=== PATIENT | male | born 1960 | race Caucasian/White ===

== ENCOUNTER → 2020-03-06 15:21 | Outpatient (CLI) | payer OTHER, SELFPAY ==
[2020-03-06 17:07] LABS: Prostate Specific Antigen 2.56 ng/mL (0.10-4.00)
== END ==
PROVIDERS: Family Provider Family Medicine; PCP Specialist; Referring Provider Specialist; Visit Provider Specialist
DX: R97.20 Elevated prostate specific antigen [PSA] (principal); N40.1 Benign prostatic hyperplasia with lower urinary tract symptoms; N13.8 Other obstructive and reflux uropathy
CPT/HCPCS: 36415; 51798; 81002; 84153; 99214

== ENCOUNTER 2020-05-28 18:21 | Emergency (ER) | payer OTHER, SELFPAY ==
--- NOTE | 2020-05-28 18:27 | DI.US.S_ITS ---
PROCEDURE: US PERIPH VENOUS LOW EXTREM LT INDICATIONS: EDEMA TECHNIQUE: Real-time imaging, as well as color and pulse Doppler interrogation, were performed of the lower extremity deep veins from the inguinal ligament to the popliteal fossa. COMPARISON: None. FINDINGS: The common femoral, femoral and popliteal veins are normally compressible, and free of intraluminal thrombus. Color and pulse Doppler demonstrate normal phasic intraluminal flow. There is normal augmentation response to distal compression maneuver. 69 mm popliteal fossa fluid collection IMPRESSION: No evidence of left lower extremity DVT. Castillo's cyst. Dictated by: Cuca Fallon M.D. on 05/28/2020 at 18:57 Approved by: Cuca Fallon M.D. on 05/28/2020 at 18:58
[2020-05-28 18:28] VITALS: BP 115/66; PULSE 75; RESP 18; TEMP 36.5; O2SAT 99
[2020-05-28] MEDS: KETOROLAC 60 MG/2 ML VIAL 30 MG IM (19:50)
--- NOTE | 2020-05-28 20:51 | ED.LOWEXIN ---
HPI - Extremity Injury (Lower) <GEETA Higgins-BC - Last Filed: 05/28/20 20:55> General Chief Complaint: Extremity Injury, Lower Stated Complaint: thinks DVT left leg Time Seen by Provider: 05/28/20 18:55 Source: patient Mode of arrival: Ambulatory Limitations: no limitations History of Present Illness HPI Narrative: The patient is a 59-year-old male nonsmoker with history of hernia surgery over a month ago who presents with a chief complaint of a swollen left lower leg is been ongoing for the past several weeks, worse over the past few days. He was seen by his primary care provider, Dr Noland who referred him to the emergency department for a DVT workup. He has no falls or trauma, no knee pain, but several weeks ago felt swelling behind his knee. He denies any recent immobility, is very active playing tennis. He does have history of a hernia surgery several weeks to months ago. Denies any personal history of blood clots. Denies any chest pain or shortness of breath, denies any fevers nausea vomiting or diarrhea. Related Data Previous Rx's Medication Instructions Recorded tamsulosin 0.4 mg capsule 0.4 mg PO BEDTIME #90 cap 03/18/20 ketorolac 10 mg PO TID PRN #14 tab 05/28/20 Allergies Allergy/AdvReac Type Severity Reaction Status Date / Time No Known Drug Allergies Allergy Unverified 03/06/20 14:08 Review of Systems <Mariann GEETA Nascimento-BC - Last Filed: 05/28/20 20:55> Review of Systems Narrative: GENERAL: This is a well-nourished, well-developed patient, in mild distress. HEAD: Atraumatic. Normocephalic. No temporal or scalp tenderness. EYES: Pupils equal round and reactive. Extraocular motions intact. No scleral icterus. No injection or drainage. ENT: Nose without bleeding, purulent drainage or septal hematoma. Throat without erythema, tonsillar hypertrophy or exudate. Uvula midline. Airway patent. NECK: Trachea midline. No JVD or lymphadenopathy. Supple, nontender, no meningeal signs. CARDIOVASCULAR: Regular rate and rhythm without murmurs, gallops, or rubs. RESPIRATORY: Clear to auscultation. Breath sounds equal bilaterally. No wheezes, rales, or rhonchi. GASTROINTESTINAL: Abdomen soft, non-tender, nondistended. No hepato-splenomegaly, or palpable masses. No guarding. EXTREMITIES: See HPI BACK: Nontender without deformity or crepitance. No flank tenderness. NEURO: AOx3. SKIN: No rash or erythema. Patient History <FIOR Higgins - Last Filed: 05/28/20 20:55> Medical History (Updated 05/28/20 @ 20:02 by FIOR Higgins) Elevated PSA (Acute) Increased prostate specific antigen (PSA) velocity (Acute) Surgical History H/O gastric bypass (Acute) H/O hernia repair (Acute) History of removal of calculus of renal pelvis through percutaneous nephrostomy (Acute) Previous back surgery (Acute) Social History Smoking Status: Never smoker Smoking Status: Never smoker Exam <FIOR Higgins - Last Filed: 05/28/20 20:55> Narrative Exam Narrative: GENERAL: This is a well-nourished, well-developed patient, in no acute distress HEAD: Atraumatic. Normocephalic. No temporal or scalp tenderness. EYES: Pupils equal round and reactive. Extraocular motions intact. No scleral icterus. No injection or drainage. ENT: Nose without bleeding, purulent drainage or septal hematoma. Throat without erythema, tonsillar hypertrophy or exudate. Uvula midline. Airway patent. NECK: Trachea midline. No JVD or lymphadenopathy. Supple, nontender, no meningeal signs. CARDIOVASCULAR: Regular rate and rhythm RESPIRATORY: Clear to auscultation. Breath sounds equal bilaterally. No wheezes, rales, or rhonchi. No cough. No increased respiratory effort. No accessory muscle use. EXTREMITIES: Positive pedal pulses left lower leg. Slight swelling noted left leg compared to right leg. No visual abnormalities. Varicosities noted on right leg. Some pain to palpation left gastrocs. Negative Homans test. BACK: Nontender without deformity or crepitance. No flank tenderness. NEURO: AOx3. SKIN: No rash or erythema on visible skin. No erythema noted left lower leg. Initial Vital Signs Initial Vital Signs: Vital Signs Temperature 97.7 F 05/28/20 18:28 Pulse Rate 75 05/28/20 18:28 Respiratory Rate 18 05/28/20 18:28 Blood Pressure 115/66 05/28/20 18:28 Pulse Oximetry 99 05/28/20 18:28 <Tavon Anaya DO - Last Filed: 05/28/20 21:40> Initial Vital Signs Initial Vital Signs: Vital Signs Temperature 97.7 F 05/28/20 18:28 Pulse Rate 75 05/28/20 18:28 Respiratory Rate 18 05/28/20 18:28 Blood Pressure 115/66 05/28/20 18:28 Pulse Oximetry 99 05/28/20 18:28 Scores <FIOR Higgins - Last Filed: 05/28/20 20:55> GCS [place] coma scale eye opening: Spontaneous [place] coma scale verbal response: Orientated [place] coma scale motor response: Obey commands [place] coma scale total score: 15 Course <FIOR Higgins - Last Filed: 05/28/20 20:55> Orders Ordered: ED Orders 05/28/20 18:27 US periph venous low extrem lt Stat Discontinued Medications Ketorolac Tromethamine (Toradol) 30 mg IM NOW ONE Stop: 05/28/20 19:35 Last Admin: 05/28/20 19:50 Dose: 30 mg Documented by: MARCO Vital Signs Vital signs: Vital Signs - 8 hr 05/28/20 18:28 Temperature 97.7 F Pulse Rate 75 Respiratory Rate 18 Blood Pressure 115/66 Pulse Oximetry 99 <Tavon Anaya DO - Last Filed: 05/28/20 21:40> Orders Ordered: ED Orders 05/28/20 18:27 US periph venous low extrem lt Stat Discontinued Medications Ketorolac Tromethamine (Toradol) 30 mg IM NOW ONE Stop: 05/28/20 19:35 Last Admin: 05/28/20 19:50 Dose: 30 mg Documented by: MARCO Vital Signs Vital signs: Vital Signs - 8 hr 05/28/20 18:28 Temperature 97.7 F Pulse Rate 75 Respiratory Rate 18 Blood Pressure 115/66 Pulse Oximetry 99 MDM - Extremity Injury (Lower) <FIOR Higgins - Last Filed: 05/28/20 20:55> Imaging Data US - DVT: Radiologist's Impression: [address] [place] [id number] Ultrasound Report Signed Patient: Dejuan Morris [facility]#: [id number] : 9Acct:[id number] Age/Sex: 59 / MDate of Service: 05/28/20 Loc: ED Accession Number: [id number] Procedure: US periph venous low extrem lt Ordering Provider: Mariann Nascimento PROCEDURE: US PERIPH VENOUS LOW EXTREM LT INDICATIONS: EDEMA TECHNIQUE: Real-time imaging, as well as color and pulse Doppler interrogation, were performed of the lower extremity deep veins from the inguinal ligament to the popliteal fossa. COMPARISON: None. FINDINGS: The common femoral, femoral and popliteal veins are normally compressible, and free of intraluminal thrombus. Color and pulse Doppler demonstrate normal phasic intraluminal flow. There is normal augmentation response to distal compression maneuver. 69 mm popliteal fossa fluid collection IMPRESSION: No evidence of left lower extremity DVT. Castillo's cyst. Dictated by: Cuca Fallon M.D. on 05/28/2020 at 18:57 Approved by: Cuca Fallon M.D. on 05/28/2020 at 18:58 [facility] Narrative Medical decision making narrative: The patient is a 59-year-old male who presents for chief complaint of a possible DVT of his left lower leg. His ultrasound came back negative for DVT, positive for Castillo cyst, which could be causing his swelling and pain. He denies any falls or trauma, so I do not believe an x-ray would benefit him at this point time. He is neurovascularly intact throughout stay in the ER. We did do a trial of Toradol, he wanted to leave before we can ensure that it would help his pain, so I did send in a prescription and discussed at length taking it with food. Encourage primary care provider follow-up the next few days as well as coming back to the ER for acute concerns. Patient has no questions or concerns upon discharge and states understanding of return precautions as well as follow-up care. Discharge Plan Departure Patient Disposition: Home Clinical Impression: Castillo's cyst of knee Qualifiers: Laterality: left Qualified Code(s): M71.22 - Synovial cyst of popliteal space [Castillo], left knee Discharge Date/Time: 05/28/20 20:18 Instructions: DI for Castillo Cyst Activity Restrictions/Additional Instructions: As thank you for trusting us with your care today. As discussed, your ultrasound came back negative for a DVT. It did come back with a Castillo's cyst. I sent a prescription of ketorolac or Toradol to [facility] in [facility] I have given you a prescription of Toradol. This is an NSAID. Do not combine it with other NSAIDs such as Aleve or ibuprofen. I suggest taking it with some food, as it can irritate your stomach. Please come back to the emergency department for any acute concerns such as chest pain, shortness of breath etcetera Please follow-up with primary care provider in the next few days Prescriptions: New ketorolac 10 mg tablet 10 mg PO TID PRN (Reason: pain) Qty: 14 RF: 0 No Action tamsulosin 0.4 mg capsule 0.4 mg PO BEDTIME Qty: 90 RF: 3 Referrals: Tavon Noland [Non-Staff] - <Tavon Anaya DO - Last Filed: 05/28/20 21:40> [facility]: Dr Anaya Co-Sign Statement: I was available for consultation during this patient's emergency department visit. This chart is signed by myself for administrative purposes only. I did not have direct contact with this patient during this visit. They were seen independently by the APC.
== END 2020-05-28 20:18 | disposition home or self-care (01) ==
PROVIDERS: Emergency Provider Nurse Practitioner Family; Family Provider Family Medicine; PCP Specialist
DX: M71.22 Synovial cyst of popliteal space [Baker], left knee (principal)
CPT/HCPCS: 93971; 96372; 99283; J1885

== ENCOUNTER 2020-06-09 10:34 | Emergency (ER) | payer OTHER, SELFPAY ==
[2020-06-09 10:44] VITALS: BP 175/94; PULSE 74; RESP 16; TEMP 36.7; O2SAT 100; BMI 34.2
--- NOTE | 2020-06-09 11:08 | ED_ITS ---
HPI - Extremity Problem <MAG Singletary - Last Filed: 06/09/20 18:17> General Chief complaint: Extremity Problem,Nontraumatic Stated complaint: swollen left leg Time Seen by Provider: 06/09/20 10:57 Source: patient Mode of arrival: Ambulatory Limitations: no limitations History of Present Illness HPI Narrative: 59yo male presents to the ED for re-evaluation for left leg swelling. Patient was seen in the emergency department on 05/28/2020 for rule out DVT, he was sent to the ED by his primary care provider at that time. Ultrasound was negative for DVT but positive for Castillo cyst. Patient states he continues to have pain located behind his left knee, patient reports the swelling has increased. He has an appointment in 2 days with an orthopedic. However, he was concerned that the swelling has been worse and his degree of left knee flexion has decreased. Patient reports a dull aching pain located behind his knee that radiates down to his left calf, worse with weight-bearing and movement. Patient states he talked to somebody at the [facility] and was told to be re-evaluated in the ED. Patient has a history of hernia surgery a few months ago, denies any history of clotting disorders or recent DVTs. Patient states he has been taking 400 mg of ibuprofen every 6 hours. He has an orthopedic appointment scheduled in 2 days. Related Data Previous Rx's Medication Instructions Recorded tamsulosin 0.4 mg capsule 0.4 mg PO BEDTIME #90 cap 03/18/20 ketorolac 10 mg PO TID PRN #14 tab 05/28/20 Allergies Allergy/AdvReac Type Severity Reaction Status Date / Time No Known Drug Allergies Allergy Unverified 03/06/20 14:08 Review of Systems <MAG Singletary - Last Filed: 06/09/20 18:17> Review of Systems Narrative: REVIEW OF SYSTEMS: GENERAL: Denies fever or chills. HENT: No head trauma. CARDIOVASCULAR: No chest pain. RESPIRATORY: No shortness of breath or cough. GASTROINTESTINAL: No nausea, vomiting, diarrhea, or constipation. GENITOURINARY: No flank pain. MUSCULOSKELETAL: Complains of L leg pain, see HPI. INTEGUMENTARY: No rash, lesions, or pruritus. NEURO: No numbness, tingling. PSYCH: No behavior or mood changes. Patient History <MAG Singletary - Last Filed: 06/09/20 18:17> Medical History Elevated PSA (Acute) Increased prostate specific antigen (PSA) velocity (Acute) Surgical History H/O gastric bypass (Acute) H/O hernia repair (Acute) History of removal of calculus of renal pelvis through percutaneous nephrostomy (Acute) Previous back surgery (Acute) Social History Smoking Status: Never smoker Smoking Status: Never smoker alcohol intake frequency: holidays/special occasions only Substance Use Type: does not use Exam <MAG Singletary - Last Filed: 06/09/20 18:17> Initial Vital Signs Initial Vital Signs: Vital Signs Temperature 98.1 F 06/09/20 10:44 Pulse Rate 74 06/09/20 10:44 Respiratory Rate 16 06/09/20 10:44 Blood Pressure 175/94 H 06/09/20 10:44 Pulse Oximetry 100 06/09/20 10:44 PHYSICAL EXAMINATION: GENERAL: Well groomed, alert, and cooperative. Answers questions promptly and appropriately. Vital signs noted. HENT: Normocephalic, atraumatic. EYES: Symmetrical, sclera white, no periorbital swelling. CARDIOVASCULAR: S1 and S2 sounds normal. Regular rate and rhythm, no murmurs, clicks, or bruits. No pedal edema. RESPIRATORY: Normal respiratory rate, trachea midline, airway patent. No stridor, nasal flaring or accessory muscle use. Lungs are clear in all wan. MUSCULOSKELETAL: Swelling noted to left knee, no erythema or increased temp. Tenderness to popliteal region, flexion to approximately 30?, full extension. Slight swelling noted in left ankle, slight tenderness to palpation of left calf. Pedal pulses 2+ and equal bilaterally. Normal gait and coordination. Equal tone and mass bilaterally. EXTREMITIES: CMS intact. SKIN: Warm, dry, soft, appropriate color for ethnicity. No lesions, rashes, or wounds. NEURO: Alert and Oriented X 3. No sensory deficits. PSYCH: Appropriate affect and mood. <Adarsh Fernandez MD - Last Filed: 06/10/20 18:03> Initial Vital Signs Initial Vital Signs: Vital Signs Temperature 98.1 F 06/09/20 10:44 Pulse Rate 74 06/09/20 10:44 Respiratory Rate 16 06/09/20 10:44 Blood Pressure 175/94 H 06/09/20 10:44 Pulse Oximetry 100 06/09/20 10:44 Course <MAG Singletary - Last Filed: 06/09/20 18:17> Course Course Narrative: 1116: Patient initially requested draining of Castillo cyst or MRI, explained to patient that he would need to seen orthopedic in order for these tested occurred. Discussed risks of draining cyst at this time due to lack of notable collection of fluid and increasing fraction wrist. Discussed unable to get MRI from ED at this time. At time of discharge, discussed increased size of Castillo cyst, negative DVT. Encouraged to follow-up with orthopedic in the next few days. Orders Ordered: ED Orders 06/09/20 11:06 US periph venous low extrem lt Stat Consultations Consultation #1: Staffed with Dr. Fernandez, who agreed no emergent drainage of cyst needed Vital Signs Vital signs: Vital Signs - 8 hr 06/09/20 10:44 06/09/20 12:55 Temperature 98.1 F Pulse Rate 74 62 Respiratory Rate 16 16 Blood Pressure 175/94 H 136/76 Pulse Oximetry 100 100 <Adarsh Fernandez MD - Last Filed: 06/10/20 18:03> Orders Ordered: ED Orders 06/09/20 11:06 US periph venous low extrem lt Stat Vital Signs Vital signs: Vital Signs - 8 hr 06/09/20 10:44 06/09/20 12:55 Temperature 98.1 F Pulse Rate 74 62 Respiratory Rate 16 16 Blood Pressure 175/94 H 136/76 Pulse Oximetry 100 100 MDM - Extremity (Nontraumatic) <MAG Singletary - Last Filed: 06/09/20 18:17> Medical Records Attestation: I reviewed the patient's medical records. Lab Data Attestation: I reviewed the patient's lab results. Imaging Data US - DVT: Radiologist's Impression: [address] [id number] Ultrasound Report Signed Patient: Dejuan Morris [facility]#: [id number] : 9Acct:[id number] Age/Sex: 59 / MDate of Service: 06/09/20 Loc: ED Accession Number: [id number] Procedure: US periph venous low extrem lt Ordering Provider: Leatha Obregon PROCEDURE: US PERIPH VENOUS LOW EXTREM LT INDICATIONS: LEFT LEG SWELLING - RULE OUT DEEP VEIN THROMBOSIS TECHNIQUE: Real-time imaging, as well as color and pulse Doppler interrogation, were performed of the lower extremity deep veins from the inguinal ligament to the popliteal fossa. COMPARISON: [facility], PERIPH VENOUS LOW EXTREM LT, 05/28/2020, 18:44. FINDINGS: The common femoral, femoral and popliteal veins are normally compressible, and free of intraluminal thrombus. Color and pulse Doppler demonstrate normal phasic intraluminal flow. There is normal augmentation response to distal compression maneuver. 10.1 x 4.5 x 1.8 cm complex appearing popliteal cyst is again seen previously measures 6.9 x 2.9 x 1.5 cm in size. IMPRESSION: 1. No evidence of DVT in visualized left lower extremity veins. 2. Interval increase in size of patient's known complex popliteal cyst. Dictated by: Abundio Rodriguez M.D. on 06/09/2020 at 12:23 Approved by: Abundio Rodriguez M.D. on 06/09/2020 at 12:23 MDM Narrative Medical decision making narrative: 59-year-old male with a known popliteal cyst, presents to the for worsening swelling and pain to the back of his left knee. Additional ultrasound ordered to further rule out DVT given some probability of missing DVT on 1st initial ultrasound. Ultrasound negative for DVT, shows enlarging popliteal cyst. No signs of infection, no surrounding erythema or increased temp. I suspect patient's pain is swelling is most likely caused by the popliteal cyst, unable to offer cyst drainage or glucocorticoid injection in the ED today. He was encouraged to follow-up with orthopedic as scheduled in the next 2 days. Return precautions given for new or worsening symptoms. Patient agreed to plan of care verbalized understanding. Discharge Plan Departure Patient Disposition: Home Clinical Impression: Castillo cyst Qualifiers: Laterality: left Qualified Code(s): M71.22 - Synovial cyst of popliteal space [Castillo], left knee Discharge Date/Time: 06/09/20 13:02 Instructions: DI for Castillo Cyst Activity Restrictions/Additional Instructions: Thank you for entrusting me with your care today. As discussed, a Castillo cyst was seen on ultrasound today, it has increased in size. This will need further treatment, please see the orthopedic as scheduled on Tuesday. No DVT seen. Use an Froilan bandage to help decrease swelling, take ibuprofen as needed. Return emergency department for any new or worsening symptoms. Prescriptions: No Action tamsulosin 0.4 mg capsule 0.4 mg PO BEDTIME Qty: 90 RF: 3 ketorolac 10 mg tablet 10 mg PO TID PRN (Reason: pain) Qty: 14 RF: 0 Referrals: Tavon Noland [Primary Care Provider] - <Adarsh Fernandez MD - Last Filed: 06/10/20 18:03> Cosign ED Attending Cosignature Attestation: I was immediately available in the department for consultation. This documentation has been reviewed and I agree with assessment and plan. Supervised by Adarsh Fernandez MD
[2020-06-09 12:55] VITALS: BP 136/76; PULSE 62; RESP 16; O2SAT 100
== END 2020-06-09 13:02 | disposition home or self-care (01) ==
PROVIDERS: Emergency Provider Nurse Practitioner; Family Provider Family Medicine; PCP Family Medicine
DX: M71.22 Synovial cyst of popliteal space [Baker], left knee (principal)
CPT/HCPCS: 93971; 99281; 99283

== ENCOUNTER → 2020-11-24 11:59 | Outpatient (CLI) | payer OTHER, SELFPAY ==
--- NOTE | 2020-11-24 12:00 | DI.RAD.S_ITS ---
PROCEDURE: XR LUMBAR SPINE MIN 4V INDICATIONS: lbp TECHNIQUE: 5 views of the lumbar spine were acquired, including bilateral oblique views. COMPARISON: None. FINDINGS: Bones: 5 nonrib-bearing vertebrae are present. There is normal bony alignment. No vertebral body compression fractures. Mild degenerative endplate changes are noted at L4-5 and L5-S1 levels. No suspicious bony lesions. Soft tissues: Overlying bowel gas pattern is normal. No suspicious soft tissue calcifications. Oblique images: No pars defects. No significant bony foraminal stenosis. IMPRESSION: Mild degenerative disc disease in lower lumbar spine. No compression fracture or spondylolisthesis. No gross pars defect or significant bony foraminal stenosis. Dictated by: Abundio Rodriguez M.D. on 11/24/2020 at 12:25 Approved by: Abundio Rodriguez M.D. on 11/24/2020 at 12:26
== END ==
PROVIDERS: Family Provider Family Medicine; PCP Family Medicine; Referring Provider Physical Medicine & Rehabilitation; Visit Provider Physical Medicine & Rehabilitation
DX: M51.16 Intervertebral disc disorders with radiculopathy, lumbar region (principal)
CPT/HCPCS: 72110; 99214

== ENCOUNTER 2021-01-07 12:32 | Emergency (ER) | payer OTHER, SELFPAY ==
[2021-01-07] VITALS (26 sets, daily range): BP systolic 101–136; BP diastolic 72–91; PULSE 63–89; RESP 7–32; TEMP 36.9; O2SAT 96–100; BMI 25.8
--- NOTE | 2021-01-07 12:35 | ED.ARRPALP ---
HPI - Arrhythmia/Palpitations General Chief Complaint: Arrhythmia/Palpitations Stated Complaint: hx of a-fib/episode 28 hours Time Seen by Provider: 01/07/21 12:34 Source: patient Mode of arrival: Ambulatory Limitations: no limitations History of Present Illness HPI narrative: 60-year-old male nonsmoker with history of hypertension and prior episodes of brief atrial fibrillation presents with a chief complaint of a rapid and irregular heart beat with associated shortness of breath and some dizziness. He denies any chest pain nor fever or chills. He states that his symptoms started yesterday morning and is certainly were not happened the night before. 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 He is not anticoagulated but does take a baby aspirin daily. He denies any recent travel, change in diet or medications. MD complaint: rapid heart beat Onset (ago): hour(s) Duration: constant Severity: moderate Context: occurred during rest Arrhythmia history: atrial fibrillation Associated symptoms: shortness of breath Related Data Home Medications Medication Instructions Recorded Confirmed losartan 25 mg tablet 25 mg PO DAILY 11/24/20 11/24/20 Previous Rx's Medication Instructions Recorded celecoxib 200 mg capsule 200 mg PO DAILY #30 cap 11/24/20 apixaban [Eliquis] 5 mg PO BID 21 Days #42 tab 01/07/21 Allergies Allergy/AdvReac Type Severity Reaction Status Date / Time No Known Drug Allergies Allergy Unverified 11/24/20 14:26 Review of Systems Constitutional Constitutional: Denies chills, Denies fatigue, Denies fever(s), Denies frequent falls, Denies lethargy and Denies weakness Eyes Eyes: Denies change in vision, Denies eye discharge, Denies irritation and Denies loss of vision ENT Ears, Nose, Mouth, and Throat: Denies change in voice, Denies dizziness, Denies neck pain, Denies sore throat and Denies throat swelling Cardiovascular Cardiovascular: Denies chest pain, Reports irregular heart rhythm, Reports lightheadedness, Reports palpitations, Reports dyspnea, Denies dyspnea on exertion and Denies orthopnea Respiratory Respiratory: Denies cough, Reports dyspnea, Denies dyspnea on exertion and Denies wheezing Gastrointestinal Gastrointestinal: Denies abdominal pain, Denies change in bowel habits, Denies diarrhea, Denies nausea and Denies vomiting Musculoskeletal Musculoskeletal: Denies neck pain and Denies numbness Integumentary/Breasts Skin/Breast: Denies pruritus, Denies erythema, Denies rash and Denies wounds Neurologic Neurologic: Denies behavioral changes, Denies confusion, Denies dizziness, Denies frequent falls, Denies loss of vision, Denies numbness and Denies weakness Psychiatric Psychiatric: Denies anxiety, Denies behavioral changes, Denies confusion, Denies depression, Denies homicidal ideation and Denies suicidal ideation Endocrine Endocrine: Denies fatigue, Denies flushing and Reports palpitations Hematologic/Lymphatic Hematologic/Lymphatic: Denies easy bruising Allergic/Immunologic Allergic/Immunologic: Denies urticaria, Denies throat swelling and Denies wheezing Patient History Medical History Elevated PSA Facet arthropathy, lumbar Increased prostate specific antigen (PSA) velocity Lumbar radiculopathy Surgical History H/O gastric bypass H/O hernia repair History of removal of calculus of renal pelvis through percutaneous nephrostomy Previous back surgery Social History Smoking Status: Never smoker Smoking Status: Never smoker alcohol intake frequency: holidays/special occasions only Substance Use Type: does not use Exam Narrative Exam Narrative: GENERAL: [60] year old patient appears stated age. Well-nourished, well-developed patient, in mild distress. HEAD: Atraumatic. Normocephalic. EYES: Pupils equal round and reactive. Extraocular motions intact. No scleral icterus. No injection or drainage. ENT: Nose without bleeding, purulent drainage. Throat without erythema, tonsillar hypertrophy or exudate. Airway patent. NECK: Trachea midline. Non tender CARDIOVASCULAR: Regular rate but irregular rhythm without murmurs, gallops, or rubs. RESPIRATORY: Clear to auscultation. Breath sounds equal bilaterally. No wheezes, rales, or rhonchi. GASTROINTESTINAL: Abdomen soft, non-tender, nondistended. EXTREMITIES: No edema or joint tenderness. BACK: Nontender without deformity or crepitance. No flank tenderness. NEURO: AOx3. SKIN: No rash or erythema of visible areas Initial Vital Signs Initial Vital Signs: Vital Signs Temperature 98.5 F 01/07/21 12:40 Pulse Rate 89 01/07/21 12:40 Respiratory Rate 16 01/07/21 12:40 Blood Pressure 136/91 H 01/07/21 12:40 Pulse Oximetry 99 01/07/21 12:40 Procedures Cardioversion Consent Signed: Yes Indication: Symptomatic atrial fibrillation Stability: Stable Number of attempts (shocks): 1 Joules used: 150 Cardiac rhythm post-cardioversion: Normal sinus Procedural Sedation Consent signed: Yes Time out performed: Yes Indication: cardioversion ASA Class: II Mallampati Airway Classification: Class II Preparation: group program manager applied, pulse oximeter, capnometry used, supplemental O2 applied, suction/airway equipment at bedside and IV secured IV Propofol dose (mg): 80 Intraservice time/total sedation time (min): 10 ED Sedation Level: Moderate (Concious) Patient Tolerated Procedure: Well Complications: none Scores CHADS-VASc Congestive heart failure: no Hypertension: yes Age 75 years or older: no Diabetes mellitus: no Stroke, TIA, or TE: no Vascular disease: no Age 65 to 74 years: no Sex category (female): Male CHADS-VASc Score: 1 Course Orders Ordered: ED Orders 01/07/21 12:35 EKG-12 Lead Stat 01/07/21 12:41 Basic Metabolic Panel Stat Complete Blood Count AUTO DIFF Stat Magnesium Stat TSH w/ Reflex to FT4 Stat Discontinued Medications Apixaban (Apixaban 5 Mg Tablet) 5 mg PO NOW ONE Stop: 01/07/21 15:08 Last Admin: 01/07/21 15:26 Dose: 5 mg Documented by: [email or web address] Propofol (Propofol 200 Mg/20 Ml Vial) 80 mg 1 mg/kg (80 mg) IV NOW ONE Stop: 01/07/21 14:03 Last Admin: 01/07/21 14:10 Dose: 60 mg Documented by: RSSIRIA Consultations Consultation #1: I did discuss this case with on-call Cardiology given the time frame of approximately 30 hours and patient's rate. We do show the opinion that the patient is low risk for clot formation and stroke per chads Vasc, and also takes aspirin. Though his rate is only in the 80s or 90s his resting heart rate is in the 60s and he is actually rather symptomatic from this. Vital Signs Vital signs: Vital Signs - 8 hr 01/07/21 12:40 01/07/21 12:41 01/07/21 12:50 Temperature 98.5 F Pulse Rate 89 87 84 Respiratory Rate 16 19 13 Blood Pressure 136/91 H 118/72 Pulse Oximetry 99 99 98 01/07/21 13:00 01/07/21 13:30 01/07/21 13:31 Temperature Pulse Rate 84 80 81 Respiratory Rate 17 14 16 Blood Pressure 101/74 114/74 Pulse Oximetry 97 96 96 01/07/21 14:00 01/07/21 14:06 01/07/21 14:10 Temperature Pulse Rate 83 80 81 Respiratory Rate 32 H 16 15 Blood Pressure 111/77 111/82 111/86 Pulse Oximetry 97 98 98 01/07/21 14:15 01/07/21 14:20 01/07/21 14:21 Temperature Pulse Rate 83 71 73 Respiratory Rate 15 14 14 Blood Pressure 120/73 111/76 Pulse Oximetry 100 100 100 01/07/21 14:25 01/07/21 14:30 01/07/21 14:35 Temperature Pulse Rate 69 66 69 Respiratory Rate 15 7 L 12 Blood Pressure 107/72 116/79 119/80 Pulse Oximetry 100 100 100 01/07/21 14:40 01/07/21 14:45 01/07/21 14:50 Temperature Pulse Rate 65 63 68 Respiratory Rate 12 13 15 Blood Pressure 115/79 118/72 116/77 Pulse Oximetry 100 100 100 01/07/21 14:55 01/07/21 15:00 01/07/21 15:05 Temperature Pulse Rate 69 68 73 Respiratory Rate 19 17 31 H Blood Pressure 113/73 114/77 116/86 Pulse Oximetry 100 100 100 01/07/21 15:10 01/07/21 15:15 01/07/21 15:20 Temperature Pulse Rate 68 70 68 Respiratory Rate 12 18 16 Blood Pressure 120/79 116/78 114/77 Pulse Oximetry 100 100 100 01/07/21 15:25 01/07/21 15:50 Temperature Pulse Rate 70 Respiratory Rate 17 Blood Pressure 112/81 113/75 Pulse Oximetry 100 MDM - Arrhythmia/Palpitations Lab Data Result diagrams: 01/07/21 12:41 01/07/21 12:41 Labs: Lab Results 01/07/21 01/07/21 01/07/21 Range/Units 12:41 12:41 12:41 WBC 6.5 (4.5-11.0) X10^3/uL RBC 4.61 (4.5-5.9) X10^6/uL Hgb 14.9 (13.5-17.5) g/dL Hct 43.8 (41-53) % MCV 95.1 (80-100) fL MCH 32.3 (26-34) PG MCHC 34.0 (30-36) % RDW 13.5 (11.6-14.8) % Plt Count 244 (150-400) X10^3/uL Neut % (Auto) 61.9 (50-75) % Lymph % (Auto) 22.3 L (25-40) % [place] % (Auto) 9.9 (3-14) % Eos % (Auto) 5.3 H (2-4) % Baso % (Auto) 0.6 (0-2) % Neut # (Auto) 4000 (4051-3273) /uL Lymph # (Auto) 1500 (8665-8787) /uL [place] # (Auto) 600 (0-900) /uL Eos # (Auto) 300 (0-450) /uL Baso # (Auto) 0 (0-100) /uL Sodium 139 (137-145) mmol/L Potassium 4.5 (3.4-5.1) mmol/L Chloride 106 (98-107) mmol/L Carbon Dioxide 26 (22-32) mmol/L BUN 13 (9-20) mg/dL Creatinine 0.81 (0.66-1.25) mg/dL Estimated GFR > 60.0 (>60) mL/min BUN/Creatinine Ratio 16.0 (6-22) Glucose 86 (80-110) mg/dL Calcium 9.4 (8.4-10.2) mg/dL Magnesium 2.3 (1.6-2.3) mg/dL TSH (0.47-4.68) uIU/mL 01/07/21 Range/Units 12:41 WBC (4.5-11.0) X10^3/uL RBC (4.5-5.9) X10^6/uL Hgb (13.5-17.5) g/dL Hct (41-53) % MCV (80-100) fL MCH (26-34) PG MCHC (30-36) % RDW (11.6-14.8) % Plt Count (150-400) X10^3/uL Neut % (Auto) (50-75) % Lymph % (Auto) (25-40) % [place] % (Auto) (3-14) % Eos % (Auto) (2-4) % Baso % (Auto) (0-2) % Neut # (Auto) (7447-8263) /uL Lymph # (Auto) (8560-0335) /uL [place] # (Auto) (0-900) /uL Eos # (Auto) (0-450) /uL Baso # (Auto) (0-100) /uL Sodium (137-145) mmol/L Potassium (3.4-5.1) mmol/L Chloride (98-107) mmol/L Carbon Dioxide (22-32) mmol/L BUN (9-20) mg/dL Creatinine (0.66-1.25) mg/dL Estimated GFR (>60) mL/min BUN/Creatinine Ratio (6-22) Glucose (80-110) mg/dL Calcium (8.4-10.2) mg/dL Magnesium (1.6-2.3) mg/dL TSH 0.96 (0.47-4.68) uIU/mL Point of Care Testing Glucose POC 53 MDM Narrative Medical decision making narrative: I did have an extensive discussion with the patient regarding the risks and benefits of atrial fibrillation, procedural sedation and cardioversion. Patient was very strongly in support of cardioversion after this discussion, he understands risks and benefits and wishes to proceed. Patient tolerated procedure well and felt great afterwards. He has been given return precautions and sent questions answered to his apparent satisfaction Discharge Plan Departure Patient Disposition: Home Clinical Impression: Atrial fibrillation Qualifiers: Atrial fibrillation type: paroxysmal Qualified Code(s): I48.0 - Paroxysmal atrial fibrillation Instructions: DI for Atrial Fibrillation Activity Restrictions/Additional Instructions: *You have been diagnosed with [atrial fibrillation status post procedural sedation and cardioversion] *What to do: *Please continue to take your regular medications as directed. [x ] New medication prescriptions sent to your pharmacy: [[facility] ] [ ] New medication written as a paper prescription [ ] No new medications given *Please follow up with your primary care provider in 2-3 days, call for an appointment. Let them know you were seen in the Emergency Department and that we ask that you be seen in follow up. We will electronically transmit a record of today's note if your PCP is in our system *If you do not have a primary care provider please contact the [facility] Resource line at [phone]. They will ask some questions about your medical history and help get you set up with a doctor in the community. *Return to Emergency Department if you should have any new, worsening or concerning symptoms, such as [fever greater than 101 F, shaking chills, worsening pain, persistent vomiting or other bothersome symptoms] Prescriptions: New Eliquis 5 mg tablet 5 mg PO BID 21 Days Qty: 42 RF: 0 No Action losartan 25 mg tablet 25 mg PO DAILY RF: 0 celecoxib [Celebrex] 200 mg capsule 200 mg PO DAILY Qty: 30 RF: 2 Referrals: Tavon Noland MD [Primary Care Provider] -
[2021-01-07 12:57] LABS: Add Manual Diff / Slide Review NO; Basophils Absolute Auto 0 /uL (0-100); Basophils Percent Auto 0.6 % (0-2); Eosinophils Absolute Auto 300 /uL (0-450); Eosinophils Percent Auto 5.3 % (2-4); Hematocrit 43.8 % (41-53); Hemoglobin 14.9 g/dL (13.5-17.5); Lymphocytes Absolute Auto 1500 /uL (1100-4500); Lymphocytes Percent Auto 22.3 % (25-40); Mean Corpuscular Hemoglobin 32.3 PG (26-34); Mean Corpuscular Volume 95.1 fL (80-100); Monocytes Absolute Auto 600 /uL (0-900); Monocytes Percent Auto 9.9 % (3-14); Neutrophils Absolute Auto 4000 /uL (1500-7000); Neutrophils Percent Auto 61.9 % (50-75); Platelet Count 244 X10^3/uL (150-400); Red Blood Cell Count 4.61 X10^6/uL (4.5-5.9); Red Cell Distribution Width 13.5 % (11.6-14.8); White Blood Cell Count 6.5 X10^3/uL (4.5-11.0)
[2021-01-07 13:13] LABS: Blood Urea Nitrogen 13 mg/dL (9-20); Calcium 9.4 mg/dL (8.4-10.2); Carbon Dioxide 26 mmol/L (22-32); Chloride 106 mmol/L (98-107); Estimated Glomerular Filt Rate > 60.0 mL/min (>60); Glucose 86 mg/dL (80-110); HEMOLYSIS < 15 (0-50); Potassium 4.5 mmol/L (3.4-5.1); Sodium 139 mmol/L (137-145)
[2021-01-07 13:39] LABS: Magnesium 2.3 mg/dL (1.6-2.3)
[2021-01-07] MEDS: propofoL 200 MG/20 ML VIAL 80 MG IV (14:10)
[2021-01-07] MEDS: APIXABAN 5 MG TABLET PO (15:26)
[2021-01-07 16:20] LABS: TSH w/ Reflex to FT4 0.96 uIU/mL (0.47-4.68)
== END 2021-01-07 15:53 | disposition home or self-care (01) ==
PROVIDERS: Emergency Provider Emergency Medicine; Family Provider Family Medicine; PCP Family Medicine
DX: I48.0 Paroxysmal atrial fibrillation (principal); R06.02 Shortness of breath; R42 Dizziness and giddiness; Z79.82 Long term (current) use of aspirin
CPT/HCPCS: 36415; 80048; 82962; 83735; 84443; 85025; 92960; 93005; 93010; 99152; 99285; J2704

== ENCOUNTER 2021-01-18 13:23 | Emergency (ER) | payer OTHER, SELFPAY ==
[2021-01-18] VITALS (47 sets, daily range): BP systolic 105–130; BP diastolic 69–87; PULSE 62–91; RESP 10–41; TEMP 36.8; O2SAT 90–100; BMI 25.8
--- NOTE | 2021-01-18 13:38 | DI.RAD.S_ITS ---
PROCEDURE: XR CHEST 1V INDICATIONS: afib TECHNIQUE: One view of the chest was acquired. COMPARISON: None. FINDINGS: Surgical changes and devices: None. Lungs and pleura: Lungs are clear. No pleural effusions or pneumothorax. Mediastinum: Mediastinal contours appear normal. Heart size is normal. Bones and chest wall: No suspicious bony lesions. Overlying soft tissues appear unremarkable. IMPRESSION: Normal portable chest for age. Dictated by: Justin Parks M.D. on 01/18/2021 at 12:57 Approved by: Justin Parks M.D. on 01/18/2021 at 12:58
[2021-01-18 13:53] LABS: Add Manual Diff / Slide Review NO; Basophils Absolute Auto 100 /uL (0-100); Eosinophils Absolute Auto 100 /uL (0-450); Eosinophils Percent Auto 1.9 % (2-4); Hematocrit 46.3 % (41-53); Hemoglobin 15.7 g/dL (13.5-17.5); Lymphocytes Absolute Auto 1300 /uL (1100-4500); Lymphocytes Percent Auto 17.5 % (25-40); Mean Corpuscular HGB Conc 33.9 % (30-36); Mean Corpuscular Hemoglobin 32.1 PG (26-34); Mean Corpuscular Volume 94.4 fL (80-100); Monocytes Absolute Auto 800 /uL (0-900); Monocytes Percent Auto 9.9 % (3-14); Neutrophils Absolute Auto 5400 /uL (1500-7000); Neutrophils Percent Auto 69.7 % (50-75); Platelet Count 275 X10^3/uL (150-400); Red Cell Distribution Width 13.5 % (11.6-14.8); White Blood Cell Count 7.7 X10^3/uL (4.5-11.0)
[2021-01-18] MEDS: SODIUM CHLORIDE 0.9% 1,000 ML 1000 ML IV (13:53)
[2021-01-18 13:54] LABS: INR 1.2 (0.9-1.3)
[2021-01-18 13:57] LABS: PTT Partial Thromboplastin Tim 38 SECONDS (26.4-36.2)
[2021-01-18 14:08] LABS: BUN Creatinine Ratio 22.8 (6-22); Blood Urea Nitrogen 18 mg/dL (9-20); Calcium 9.7 mg/dL (8.4-10.2); Carbon Dioxide 25 mmol/L (22-32); Chloride 106 mmol/L (98-107); Creatine Kinase 108 U/L (55-170); Estimated Glomerular Filt Rate > 60.0 mL/min (>60); Glucose 86 mg/dL (80-110); HEMOLYSIS < 15 (0-50); Magnesium 2.3 mg/dL (1.6-2.3); Potassium 4.5 mmol/L (3.4-5.1); Sodium 140 mmol/L (137-145)
[2021-01-18 14:17] LABS: NT-proBNP (BNP-Adult 18+) 484 pg/mL (<125)
[2021-01-18 14:19] LABS: Troponin I < 0.012 ng/mL (0.01-0.034)
[2021-01-18 14:23] LABS: CKMB % Relative Index 1.3 % (1.5-5.0); Creatine Kinase MB 1.42 ng/mL (<2.37)
[2021-01-18 14:39] LABS: Thyroid Stimulating Hormone 1.37 uIU/mL (0.47-4.68)
--- NOTE | 2021-01-18 15:15 | ED.ARRPALP ---
HPI - Arrhythmia/Palpitations General Chief Complaint: Arrhythmia/Palpitations Stated Complaint: poss afib Time Seen by Provider: 01/18/21 13:37 Source: patient and old records reviewed Mode of arrival: Ambulatory Limitations: no limitations History of Present Illness HPI narrative: This is a 60-year-old male who comes emergency department with complaint of atrial fibrillation. Patient states he has had a few very brief episodes in the past. This was most recently 10 days ago he had approximately 30 hours of symptoms. After discussion it was the decision was made to cardiovert the patient although he was in 80 to 90s range in the department. Patient states he was asymptomatic until this morning. He states that he does not any chest pain or pressure he feels a little lightheaded. His energy feels low. He has a little bit of mild shortness of breath. He denies any diaphoresis or sweatiness. No nausea or vomiting. Denies any swelling in his extremities. He states he did use a sauna recently. He does not think he was dehydrated otherwise. He did have a beer last night and states he has only had 2 total in the last week. Patient is on losartan daily. He was started on Eliquis after his Emergency visit here. He has a prior history of hernia repair year ago as well as a laminectomy in his cervical spine 6 years ago. No allergies. No tobacco, no illicit or recreational drugs. Family drinks alcohol occasionally. Patient does live in the [facility] at states his preference would be to be cardioverted if possible. He has seen Dr. Davis for cardiology. Related Data Home Medications Medication Instructions Recorded Confirmed losartan 25 mg tablet 25 mg PO DAILY 11/24/20 11/24/20 Previous Rx's Medication Instructions Recorded celecoxib 200 mg capsule 200 mg PO DAILY #30 cap 11/24/20 apixaban [Eliquis] 5 mg PO BID 21 Days #42 tab 01/07/21 metoprolol succinate 12.5 mg PO DAILY #30 tab 01/18/21 Allergies Allergy/AdvReac Type Severity Reaction Status Date / Time No Known Drug Allergies Allergy Verified 01/18/21 13:34 Review of Systems Review of Systems ROS Unobtainable: All systems reviewed & are unremarkable except as noted in HPI and below Patient History Medical History Elevated PSA Facet arthropathy, lumbar Increased prostate specific antigen (PSA) velocity Lumbar radiculopathy Surgical History H/O gastric bypass H/O hernia repair History of removal of calculus of renal pelvis through percutaneous nephrostomy Previous back surgery Social History Smoking Status: Never smoker Smoking Status: Never smoker alcohol intake frequency: holidays/special occasions only Substance Use Type: does not use Exam Narrative Exam Narrative: GENERAL: Alert and oriented x three,, well-appearing male in mild distress. HEENT: Head normocephalic, atraumatic, EOMI, pupils reactive, face symmetric, moist mucous membranes NECK: Supple, full range of motion CARDIOVASCULAR: Irregularly irregular rate and rhythm without murmurs, rubs or gallops. No JVD, no swelling lower extremities. RESPIRATORY: Breath sounds equal bilaterally, no wheezes rales or rhonchi. ABDOMEN: Soft, nontender. Normoactive bowel sounds all 4 quadrants. No guarding or rebound, rigidity, no mass : No CVA tenderness EXTREMITIES: Normal range of motion, no clubbing or edema. Neurovascularly intact NEUROLOGICAL: Cranial nerves II through XII grossly intact. Moving all extremities SKIN: Warm, dry, no petechiae, no rashes or lesions. Initial Vital Signs Initial Vital Signs: Vital Signs Temperature 98.2 F 01/18/21 13:30 Pulse Rate 91 H 01/18/21 13:30 Respiratory Rate 18 01/18/21 13:30 Blood Pressure 122/78 01/18/21 13:30 Pulse Oximetry 98 01/18/21 13:30 Procedures Cardioversion Consent Signed: Yes Stability: Stable Number of attempts (shocks): 2 Joules used: 150 (1st shock) and 200 (Second) Cardiac rhythm post-cardioversion: 1st shock-unsuccessful, 2nd chock-NSR Procedural Sedation Consent signed: Yes Time out performed: Yes Indication: cardioversion ASA Class: II Mallampati Airway Classification: Class II Time of Last PO Intake: 11:00 Preparation: nuclear monitoring technician applied, pulse oximeter, capnometry used, supplemental O2 applied, reversal agents at bedside, suction/airway equipment at bedside and IV secured IV Propofol dose (mg): 140 ED Sedation Level: Moderate (Concious) Patient Tolerated Procedure: Well Complications: none Additional Comments: patient required 2nd attempt with cardioversion is patient appeared to be in a sinus rhythm for short period but then reverted to atrial fibrillation. Patient had to be re-dosed and received additional propofol for moderate sedation which he tolerated well. Scores CHADS-VASc Congestive heart failure: no Hypertension: yes Age 75 years or older: no Diabetes mellitus: no Stroke, TIA, or TE: no Vascular disease: no Age 65 to 74 years: no Sex category (female): Male CHADS-VASc Score: 1 Course Orders Ordered: Discontinued Medications Apixaban (Apixaban 5 Mg Tablet) 5 mg PO NOW ONE Stop: 01/18/21 18:32 Last Admin: 01/18/21 19:50 Dose: Not Given Documented by: MARTY Apixaban (Apixaban 5 Mg Tablet) 5 mg PO NOW ONE Stop: 01/18/21 20:01 Last Admin: 01/18/21 20:09 Dose: 5 mg Documented by: [email or web address] Sodium Chloride (Normal Saline 0.9%) 1,000 mls @ 1,000 mls/hr IV BOLUS ONE Stop: 01/18/21 14:37 Last Infusion: 01/18/21 15:00 Dose: 0 mls/hr Documented by: [email or web address] Admin: 01/18/21 13:53 Dose: 1,000 mls/hr Documented by: [email or web address] Metoprolol Succinate (Metoprolol Er 25 Mg Tablet) 12.5 mg PO NOW ONE Stop: 01/18/21 18:32 Last Admin: 01/18/21 19:50 Dose: Not Given Documented by: MARTY Metoprolol Succinate (Metoprolol Er 25 Mg Tablet) 12.5 mg PO NOW ONE Stop: 01/18/21 20:01 Last Admin: 01/18/21 20:09 Dose: 12.5 mg Documented by: [email or web address] Propofol (Propofol 200 Mg/20 Ml Vial) 80 mg 1 mg/kg (80 mg) IV NOW ONE Stop: 01/18/21 16:37 Last Admin: 01/18/21 20:08 Dose: 80 mg Documented by: [email or web address] Consultations Consultation #1: Spoke with Dr. Lopez who is covering for Dr. Camilo from cardiology. Does feel the patient would be appropriate to cardiovert but would recommend adding a low-dose some metoprolol to help prevent recurrence. Time: 16:02 Vital Signs Vital signs: Vital Signs - 8 hr 01/18/21 13:30 01/18/21 13:45 01/18/21 14:00 Temperature 98.2 F Pulse Rate 91 H 88 84 Respiratory Rate 18 24 23 Blood Pressure 122/78 Pulse Oximetry 98 98 97 01/18/21 14:30 01/18/21 15:00 01/18/21 15:30 Temperature Pulse Rate 79 82 82 Respiratory Rate 14 16 21 Blood Pressure 130/78 Pulse Oximetry 98 99 99 01/18/21 16:00 01/18/21 16:30 01/18/21 17:00 Temperature Pulse Rate 81 81 83 Respiratory Rate 17 12 18 Blood Pressure Pulse Oximetry 98 99 98 01/18/21 17:05 01/18/21 17:06 01/18/21 17:10 Temperature Pulse Rate 82 78 79 Respiratory Rate 10 L 17 15 Blood Pressure 116/78 Pulse Oximetry 99 99 97 01/18/21 17:15 01/18/21 17:20 01/18/21 17:25 Temperature Pulse Rate 78 78 79 Respiratory Rate 21 21 18 Blood Pressure Pulse Oximetry 98 98 99 01/18/21 17:30 01/18/21 17:34 01/18/21 17:35 Temperature Pulse Rate 84 81 86 Respiratory Rate Blood Pressure 117/78 128/81 Pulse Oximetry 98 99 99 01/18/21 17:40 01/18/21 17:45 Temperature Pulse Rate 81 84 Respiratory Rate 16 Blood Pressure 128/87 116/69 Pulse Oximetry 99 96 MDM - Arrhythmia/Palpitations Lab Data Attestation: I reviewed the patient's lab results. Result diagrams: 01/18/21 13:35 01/18/21 13:35 Labs: Lab Results 01/18/21 01/18/21 01/18/21 Range/Units 13:35 13:35 13:35 WBC 7.7 (4.5-11.0) X10^3/uL RBC 4.90 (4.5-5.9) X10^6/uL Hgb 15.7 (13.5-17.5) g/dL Hct 46.3 (41-53) % MCV 94.4 (80-100) fL MCH 32.1 (26-34) PG MCHC 33.9 (30-36) % RDW 13.5 (11.6-14.8) % Plt Count 275 (150-400) X10^3/uL Neut % (Auto) 69.7 (50-75) % Lymph % (Auto) 17.5 L (25-40) % Lander % (Auto) 9.9 (3-14) % Eos % (Auto) 1.9 L (2-4) % Baso % (Auto) 1.0 (0-2) % Neut # (Auto) 5400 (7816-1021) /uL Lymph # (Auto) 1300 (6744-8406) /uL Lander # (Auto) 800 (0-900) /uL Eos # (Auto) 100 (0-450) /uL Baso # (Auto) 100 (0-100) /uL PT 13.0 H (10.1-12.7) SECONDS INR 1.2 (0.9-1.3) APTT 38 H (26.4-36.2) SECONDS Sodium 140 (137-145) mmol/L Potassium 4.5 (3.4-5.1) mmol/L Chloride 106 (98-107) mmol/L Carbon Dioxide 25 (22-32) mmol/L BUN 18 (9-20) mg/dL Creatinine 0.79 (0.66-1.25) mg/dL Estimated GFR > 60.0 (>60) mL/min BUN/Creatinine Ratio 22.8 H (6-22) Glucose 86 (80-110) mg/dL Calcium 9.7 (8.4-10.2) mg/dL Magnesium 2.3 (1.6-2.3) mg/dL Total Creatine Kinase 108 (55-170) U/L CK-MB (CK-2) 1.42 (<2.37) ng/mL CK-MB (CK-2) Rel Index 1.3 L (1.5-5.0) % Troponin I < 0.012 (0.01-0.034) ng/mL NT-Pro-B Natriuret Pep (<125) pg/mL TSH (0.47-4.68) uIU/mL SARS-CoV-2 (PCR) (Negative) 01/18/21 01/18/21 01/18/21 Range/Units 13:35 13:35 16:16 WBC (4.5-11.0) X10^3/uL RBC (4.5-5.9) X10^6/uL Hgb (13.5-17.5) g/dL Hct (41-53) % MCV (80-100) fL MCH (26-34) PG MCHC (30-36) % RDW (11.6-14.8) % Plt Count (150-400) X10^3/uL Neut % (Auto) (50-75) % Lymph % (Auto) (25-40) % Lander % (Auto) (3-14) % Eos % (Auto) (2-4) % Baso % (Auto) (0-2) % Neut # (Auto) (9878-1205) /uL Lymph # (Auto) (4518-3914) /uL Lander # (Auto) (0-900) /uL Eos # (Auto) (0-450) /uL Baso # (Auto) (0-100) /uL PT (10.1-12.7) SECONDS INR (0.9-1.3) APTT (26.4-36.2) SECONDS Sodium (137-145) mmol/L Potassium (3.4-5.1) mmol/L Chloride (98-107) mmol/L Carbon Dioxide (22-32) mmol/L BUN (9-20) mg/dL Creatinine (0.66-1.25) mg/dL Estimated GFR (>60) mL/min BUN/Creatinine Ratio (6-22) Glucose (80-110) mg/dL Calcium (8.4-10.2) mg/dL Magnesium (1.6-2.3) mg/dL Total Creatine Kinase (55-170) U/L CK-MB (CK-2) (<2.37) ng/mL CK-MB (CK-2) Rel Index (1.5-5.0) % Troponin I (0.01-0.034) ng/mL NT-Pro-B Natriuret Pep 484 H (<125) pg/mL TSH 1.37 (0.47-4.68) uIU/mL SARS-CoV-2 (PCR) Negative (Negative) Imaging Data Chest x-ray: Radiologist's Impresson: [place] [address], [place] [address]CKvi ReportSigned Patient: Dejuan Morris AMR#: [id number]: 9Acct:[id number]/Sex: 60 / MDate of Service: 01/18/21Loc: EDAccession Number: [id number] Procedure: XR chest 1V Ordering Provider: Mariann Maldonado D.O. PROCEDURE: XR CHEST 1V INDICATIONS: afib TECHNIQUE: One view of the chest was acquired. COMPARISON: None. FINDINGS: Surgical changes and devices: None. Lungs and pleura: Lungs are clear. No pleural effusions or pneumothorax. Mediastinum: Mediastinal contours appear normal. Heart size is normal. Bones and chest wall: No suspicious bony lesions. Overlying soft tissues appear unremarkable. IMPRESSION: Normal portable chest for age. Dictated by: Justin Parks M.D. on 01/18/2021 at 12:57 Approved by: Justin Parks M.D. on 01/18/2021 at 12:58 ECG Data Attestation: I personally reviewed and interpreted this ECG as follows: Prior ECG tracings: available for review Interpretation: AFib with a rate of 91, QRS is 68 QTC [address] No acute ST elevation depression appreciated. Nonspecific change. Patient has prior EKG from 01/07/2021 with the 1st showing atrial fibrillation a 2nd test status post cardioversion in the emergency department with a sinus rhythm with a Q-wave in lead 3 and large P waves as well as R-wave in V1. This is noted again on today's EKG and patient has an irregularly irregular rhythm on his EKG today. Post cardioversion EKG #1 AFib with a rate 81, QRS is 72 and QTC of 432. Patient has irregularly irregular rhythm no acute ST changes appreciated. EKG 2. Shows a sinus rhythm with a rate of 71 P are 151, QRS 81 QTC of 397. Patient has nonspecific change consistent with prior EKG from 01/07/21 post cardioversion MDM Narrative Medical decision making narrative: This is a 60-year-old male with known atrial fibrillation who had a recent prolonged episode 10 days ago was seen in the emergency department and after consultation with Cardiology decision was made to cardiovert. Patient was rate controlled at that time but was somewhat symptomatic. He was asymptomatic for the past 10 days and then developed episode again this morning and continues to have rate controlled atrial fibrillation here in the department. He was started on Eliquis 10 days ago and has been taking regularly. His labs major abnormalities. His potassium is 4.5 with a Mag of 2.3. Troponin is negative. BNP is slightly elevated at 484 with negative chest x-ray no signs of pulmonary edema or lower extremity swelling physical exam. Patient's preference would to be cardioverted we discussed risks versus benefits discussed after consultation with patients cardiology service. Patient case was discussed with Cardiology, they do recommend adding low-dose metoprolol help patient prevent recurrence but feel it would be appropriate to cardiovert him. Patient is to follow-up outpatient. Prior to cardioversion patient states that he drove himself in his boat from [place] [employer]. We discussed that he cannot drive himself back to [facility] alone and that this would be unsafe and inappropriate. Patient is willing to get a hotel room and will be monitored here for several hours and then can have a cab to spend the night. Additional option was for his family for a friend to come and get him from the hospital. Patient signed out to Dr. Myers for post-sedation monitoring after appropriate time patient can d/c home. Discharge Plan Departure Patient Disposition: Home Clinical Impression: Arthropathy of lumbar facet joint Atrial fibrillation Qualifiers: Atrial fibrillation type: paroxysmal Qualified Code(s): I48.0 - Paroxysmal atrial fibrillation Instructions: DI for Atrial Fibrillation Activity Restrictions/Additional Instructions: Follow up with your teacher asst in the next week. Call Tuesday morning for an appointment. After discussion with Cardiology they do recommend that you take case low dose of metoprolol daily to help you stay in a normal sinus rhythm. Prescription sent to [facility] in [place]. It is recommended that you continue the Eliquis chronically or for long-term to decrease your risk of stroke particularly if you have increasingly frequent episodes of atrial fibrillation. I would recommend discussion with your teacher asst before stopping your medication to decide if you should continue or stop. Please return if you have fevers, recurrent symptoms, new chest pain, shortness of breath, lightheadedness or passing out, new swelling in your extremities, diaphoresis, persistent vomiting other new or concerning symptoms. Prescriptions: New metoprolol succinate 25 mg tablet extended release 24 hr 12.5 mg PO DAILY Qty: 30 RF: 0 No Action Eliquis 5 mg tablet 5 mg PO BID 21 Days Qty: 42 RF: 0 losartan 25 mg tablet 25 mg PO DAILY RF: 0 celecoxib [Celebrex] 200 mg capsule 200 mg PO DAILY Qty: 30 RF: 2 Referrals: Tavon Noland MD [Primary Care Provider] - Efra Camilo MD [Non-Staff] -
[2021-01-18 16:49] LABS: COVID19 -Nasal RAPID Negative (Negative)
[2021-01-18] MEDS: propofoL 200 MG/20 ML VIAL 80 MG IV (20:08)
[2021-01-18] MEDS: APIXABAN 5 MG TABLET PO (20:09)
[2021-01-18] MEDS: METOPROLOL ER 25 MG TABLET 12.5 MG PO (20:09)
--- NOTE | 2021-01-18 21:30 | PC.NURSE ---
Pt sedated with 80mg Propofol prior to cardioversion at 150 J. Pt converted to sinus rhythm briefly but then returned to atrial fibrillation. Pt re-sedated with 60mg Propofol and cardioverted at 200 J. Pt converted to and remained in sinus rhythm.
== END 2021-01-18 20:20 | disposition home or self-care (01) ==
PROVIDERS: Emergency Provider Emergency Medicine; Family Provider Family Medicine; PCP Family Medicine
DX: I48.0 Paroxysmal atrial fibrillation (principal)
CPT/HCPCS: 36415; 71045; 80048; 82550; 82553; 83735; 83880; 84443; 84484; 85025; 85610; 85730; 87635; 92960; 93005; 96360; 99152; 99285; C9803; J2704

== ENCOUNTER → 2021-02-04 09:09 | Outpatient (CLI) | payer OTHER, SELFPAY ==
--- NOTE | 2021-02-04 09:10 | DI.MRI.S_ITS ---
PROCEDURE: MR LUMBAR SPINE WO CON INDICATIONS: LUMBAR RADICULOPATHY TECHNIQUE: Noncontrast sagittal T1 spin echo and T2 fast echo, sagittal STIR, axial T1 and T2 fast spin echo through the lumbar spine. In cases with scoliosis, additional coronal T2 fast spin echo may be performed. COMPARISON: [facility], CR, XR LUMBAR SPINE MIN 4V, 11/24/2020, 12:00. FINDINGS: Image quality: Diagnostic, with note made of motion artifact. Alignment and Curvature: There is normal bony alignment. Bone Marrow: Marrow is of normal overall signal. No acute vertebral body compression fractures. Spinal Cord: Conus medullaris terminates at the L1 level. Visualized cord demonstrates normal signal and size. Paraspinous Soft Tissues: No paravertebral masses. T12-L1: The disc height and disk signal are well-preserved. Moderate facet joint hypertrophy is seen. There is moderate right-sided and no significant left-sided neural foraminal narrowing seen. No significant central canal narrowing is seen. L1-L2: The disc height and disk signal are well-preserved. Mild generalized disc bulge is seen. Moderate facet joint hypertrophy is seen. Moderate bilateral neural foraminal narrowing is seen. Moderate central canal narrowing is seen. L2-L3: The disc height and disk signal are well-preserved. Moderate generalized disc bulge is seen. Moderate facet joint hypertrophy is seen. Associated hypertrophy of the ligamentum flavum can be seen. Moderate bilateral neural foraminal narrowing can be seen, right worse than left. Moderate central canal narrowing is seen. L3-L4: The disc height and disk signal are well-preserved. Moderate disc bulge is seen, with a central disc protrusion. Moderate facet joint hypertrophy is seen. Moderate bilateral neural foraminal narrowing is seen. Moderate central canal narrowing is seen. L4-L5: The disc height and disc signal are relatively well preserved. At least moderate disc bulge is seen, which is eccentric to the right. Moderate to prominent facet hypertrophy is seen at this level. There is moderate to severe bilateral neural foraminal narrowing seen. There is a degree of compression seen upon the exiting nerve roots. At least moderate central canal narrowing is seen. L5-S1: The disc height and disk signal are well-preserved. Mild to moderate disc bulge is seen, which is eccentric to the right. Mild facet joint hypertrophy is seen. Mild to moderate bilateral neural foraminal narrowing can be seen. Mild central canal narrowing is seen. IMPRESSION: Multiple levels of lumbar spine degenerative change are seen, which are overall worst at the L4-L5 level. Dictated by: Justin Parks M.D. on 02/04/2021 at 9:07 Approved by: Justin Parks M.D. on 02/04/2021 at 9:11
== END ==
PROVIDERS: Family Provider Family Medicine; PCP Family Medicine; Referring Provider Physical Medicine & Rehabilitation; Visit Provider Physical Medicine & Rehabilitation
DX: M47.26 Other spondylosis with radiculopathy, lumbar region (principal)
CPT/HCPCS: 72148; 99214

== ENCOUNTER → 2021-02-23 11:52 | Outpatient (CLI) | payer OTHER, SELFPAY ==
[2021-02-23 20:49] LABS: COVID19 - ORCAS (NP or Nasal) Negative (Negative)
== END ==
PROVIDERS: Family Provider Family Medicine; Referring Provider Family Medicine; Visit Provider Family Medicine
DX: Z01.818 Encounter for other preprocedural examination (principal)
CPT/HCPCS: U0003

== ENCOUNTER 2021-02-26 13:43 | Outpatient (CLI) | payer OTHER, SELFPAY ==
[2021-02-26] VITALS (9 sets, daily range): BP systolic 94–145; BP diastolic 51–84; PULSE 60–69; RESP 10–22; TEMP 36.4; O2SAT 95–100
--- NOTE | 2021-02-26 13:45 | DI.RAD.S_ITS ---
PROCEDURE: PAIN L/SI FACET INJ/BLK 1STL INDICATIONS: SPONDYLOSIS COMPARISON: None. FINDINGS: Fluoroscopic spot filming was performed to verify placement of spinal needles at the facet joints of L2-3, L3-4 and L4-5. level(s), as labeled on the films. Appropriate location(s) of the needle tip(s) was confirmed by injection of iodinated contrast. IMPRESSION: Successful needle tip localization for steroid facet injection on the right, 3 levels. Dictated by: Manuelito Flores M.D. on 02/26/2021 at 16:44 Approved by: Manuelito Flores M.D. on 02/26/2021 at 16:50
[2021-02-26] MEDS: fentaNYL 100 MCG/2 ML INJ 50 MCG IV (14:21)
[2021-02-26] MEDS: MIDAZOLAM 5 MG/5 ML VIAL IV (14:21)
[2021-02-26] MEDS: BETAMETHASONE 30 MG/5 ML MDV 12 MG INJ (14:29)
[2021-02-26] MEDS: BUPIVACAINE 0.5% (PF) VIAL 5 ML INJ (14:29)
[2021-02-26] MEDS: IOPAMIDOL 15 ML VIAL 3 ML INJ (14:29)
[2021-02-26] MEDS: LIDOCAINE 1% 20 ML 10 ML INJ (14:29)
--- NOTE | 2021-02-26 14:40 | P.PCN_ITS ---
Date/Time/Diagnoses Date of procedure: 02/26/21 Time of procedure: 14:40 Pre-procedure diagnosis: 1. FACET ARTHROPATHY, 2. AXIAL LBP, 3. MULTILEVEL DDD Post-procedure diagnosis: same Procedure Notes Procedure: 1. FLUOROSCOPICALLY GUIDED CONTRAST CONTROLLED FACET JOINT INJECTIONS RIGHT L2/3, L3/4, L4/5 Indications: Dejuan is referred for treatment of Axial LBP Physician: Jerel Taylor Total Fluoroscopy time (seconds): 8 Total sedation minutes: 16 Complications: none Procedure in detail & Post-procedure care: FINDINGS Multilevel Facet Arthropathy with Clinically significant axial LBP DESCRIPTION OF PROCEDURE Fluoroscopically guided, contrast-controlled right L2/3, L3/4, L4/5 facet joint injections. Following review of allergy and review of potential side effects and c omplications, including, but not necessarily limited to, infection, allergic reaction, local tissue breakdown, stroke, temporary or permanent nerve injury, paralysis, and possible , the patient indicated that the patient understood and agreed to proceed. An informed consent document was signed by the patient, witnessed by a nurse, and placed in the patient's chart. Additionally, other treatment options including medications, modalities, and physical therapy were reviewed with the patient. After review of previous anaesthesic history and IV conscious sedation the patient was deemed safe to proceed with today?s procedure with IV conscious sedation as ASA class II designation. Safety time-out was performed to confirm patient ID, procedure to be performed and site of procedure. IV sedation was accomplished with a combination of 2mg of Versed and 50mcg of Fentanyl administered by the RN after DO order, titrated to patient comfort during the course of the procedure while the patient remained responsive to all verbal commands. In the prone position, following sterile prep and drape of the lumbar region, the posterior aspect of the right L2/3, L3/4, L4/5 facet joints were identified fluoroscopically. The skin was anesthetized via a 25-gauge 1.5-inch needle with 1% lidocaine solution into the corresponding facet joints. At this point, a 22- gauge 3.5-inch spinal needle was atraumatically introduced and advanced under fluoroscopic guidance into the corresponding facet joints. Following negative aspiration, injections of approximately 0.2-cc of Isovue 200 confirmed interart icular placement without vascular uptake. Radiological data, including multiple fluoroscopic views of the lumbosacral spine, reveal a spinal needle at the right L2/3, L3/4, L4/5 facet joints. Subs equent views show flow of contrast material both superiorly and inferiorly within the joint space without vascular or intrathecal uptake. At this point, a total of 0.5cc including a mixture of 0.25 cc Marcaine and 0.25cc betamethasone was injected without complication into each of the corresponding facet joints. The patient tolerated the procedure well without signs or symptoms of complicati ons prior to transfer to the recovery area for further monitoring. The patient was then transferred to the recovery area where they were observed for an appropriate period of time after the injection. The patient reported a VAS score of 7 prior to the procedure and a post-procedure VAS of 0. POST OP INSTRUCTIONS The patient was provided a Pain Log to continue to record their response to the target-specific procedure prior to follow-up visit with their referring physician. Additionally, specific post-injection care instructions and a contact number to our office were provided if concerns arise regarding possible complications associated with the procedure are suspected.
== END 2021-02-26 15:10 | disposition home or self-care (01) ==
PROVIDERS: Family Provider Family Medicine; Referring Provider Physical Medicine & Rehabilitation; Visit Provider Physical Medicine & Rehabilitation
DX: M47.816 Spondylosis without myelopathy or radiculopathy, lumbar region (principal); M51.36 Other intervertebral disc degeneration, lumbar region; M54.5 Low back pain
CPT/HCPCS: 64493; 64494; 64495; 99152; J0702; J2250; J3010

== ENCOUNTER → 2021-03-30 10:38 | Outpatient (CLI) | payer OTHER, SELFPAY ==
[2021-03-30 20:04] LABS: COVID19 - ORCAS (NP or Nasal) Negative (Negative)
== END ==
PROVIDERS: Family Provider Family Medicine; Visit Provider Family Medicine
DX: Z20.822 Contact with and (suspected) exposure to COVID-19 (principal)
CPT/HCPCS: U0003

== ENCOUNTER → 2021-03-31 14:11 | Outpatient (CLI) | payer OTHER, SELFPAY ==
--- NOTE | 2021-04-01 13:40 | DI.NM.S_ITS ---
PROCEDURE PERFORMED: Exercise treadmill stress and rest myocardial perfusion imaging with gating to assess ejection fraction and regional wall motion. DATE OF SERVICE: March 31, 2021 ORDERING PROVIDER: Efra Camilo MD INDICATIONS: The patient is a 60-year-old male with paroxysmal atrial fibrillation, potentially requiring antiarrhythmic therapy. EXERCISE TREADMILL TESTING: The patient was able to exercise for 11 minute on a standard Kal[place] protocol suggesting very good exercise capacity with an SHANNON of - 28%. He had a normal heart rate and blood pressure response to exercise achieving a maximum heart rate of 152 BPM (96% of his predicted maximum). He had no chest discomfort or other anginal symptoms. His resting ECG shows sinus rhythm with normal ST segments. With exercise, there were only minimal ST and T-wave abnormalities but no significant ST-segment shifts. He had occasional PACs and PVCs, but no complex ectopy and no atrial fibrillation. At 9 minutes 50 seconds of exercise at a heart rate of 145 BPM, 25.4 millicuries of technetium-99m Myoview was injected. He was imaged 10 minutes later using a gated SPECT acquisition protocol. He returned the following day and was reinjected with an additional 25.6 millicuries of technetium-99m Myoview and was imaged 20 minutes later, again using a gated SPECT acquisition protocol. RAW DATA: There is fairly good myocardial tracer uptake with mild axillary attenuation artifact noted. The lung/heart ratio was normal at 0.36 with a normal TID ratio of 0.87. QUANTITATED GATED SPECT: Post-stress ejection fraction is estimated at 71% without any focal wall motion abnormality. Resting ejection fraction is 67% with a borderline increased end-diastolic volume of 133 mL. MYOCARDIAL PERFUSION IMAGING: Post-stress supine images show a fairly normal myocardial perfusion pattern without any significant perfusion defects, supported by normal perfusion imaging in the prone position. The resting images show an identical perfusion pattern without any clear areas of improvement. IMPRESSION: 1. Normal myocardial perfusion study. 2. No evidence of myocardial ischemia or previous myocardial infarction. 3. Normal left ventricular systolic function without focal wall motion abnormality. There is borderline increased left ventricular volume. 4. Very good exercise capacity without angina or significant ECG evidence of ischemia. He had occasional PACs and PVCs, but no atrial fibrillation. Dejuan Morris - RS/fn/cs doc#: [id number]/job#: [id number] dd: 04/01/2021 12:51:00 dt: 04/01/2021 13:30:00 DICTATING MD/COPIES TO: Jerel Jenkins MD; Efra Camilo MD COPIES MNE: ELIAZAR;
== END ==
PROVIDERS: Family Provider Family Medicine; Referring Provider Internal Medicine Cardiovascular Disease; Visit Provider Internal Medicine Cardiovascular Disease
DX: I48.0 Paroxysmal atrial fibrillation (principal)
CPT/HCPCS: 78452; 93017; A9502

== ENCOUNTER → 2021-04-20 09:45 | Outpatient (CLI) | payer OTHER, SELFPAY ==
[2021-04-20 21:50] LABS: COVID19 - ORCAS (NP or Nasal) Negative (Negative)
== END ==
PROVIDERS: Family Provider Family Medicine; PCP Physician Assistant; Visit Provider Physician Assistant
DX: Z20.822 Contact with and (suspected) exposure to COVID-19 (principal)
CPT/HCPCS: U0003

== ENCOUNTER 2021-04-21 14:15 | Outpatient (CLI) | payer OTHER, SELFPAY ==
[2021-04-21] VITALS (8 sets, daily range): BP systolic 96–126; BP diastolic 58–78; PULSE 54–67; RESP 12–22; TEMP 36.6; O2SAT 97–99
--- NOTE | 2021-04-21 14:18 | DI.RAD.S_ITS ---
PROCEDURE: PAIN L/SI FACET INJ/BLK 1STL INDICATIONS: SPONDYLOSIS COMPARISON: [facility], , PAIN L/SI FACET INJ/BLK 1STL, 02/26/2021, 14:31. FINDINGS: Fluoroscopic spot filming was performed to verify placement of spinal needles at the right L5-S1 facet joint. level(s), as labeled on the films. Appropriate location(s) of the needle tip(s) was confirmed by injection of iodinated contrast. IMPRESSION: Access needle at the right L5-S1 facet joint. Dictated by: Gracie Feliciano MD, PhD on 04/21/2021 at 15:36 Approved by: Gracie Feliciano MD, PhD on 04/21/2021 at 15:37
[2021-04-21] MEDS: fentaNYL 100 MCG/2 ML INJ 50 MCG IV (14:36)
[2021-04-21] MEDS: MIDAZOLAM 5 MG/5 ML VIAL IV (14:36)
[2021-04-21] MEDS: IOPAMIDOL 15 ML VIAL 3 ML INJ (14:40)
[2021-04-21] MEDS: methylPREDNISolone acetate 80 MG/ML VIAL INJ (14:40)
[2021-04-21] MEDS: BUPIVACAINE 0.5% (PF) VIAL 2 ML INJ (14:43)
--- NOTE | 2021-04-21 14:45 | P.PCN_ITS ---
Date/Time/Diagnoses Date of procedure: 04/21/21 Time of procedure: 14:45 Pre-procedure diagnosis: 1. FACET ARTHROPATHY, 2. AXIAL LBP, 3. MULTILEVEL DDD Post-procedure diagnosis: same Procedure Notes Procedure: 1. FLUOROSCOPICALLY GUIDED CONTRAST CONTROLLED FACET JOINT INJECTIONS RIGHT L5/S1 Indications: Dejuan is referred by Dr. Funk for treatment of Right Axial LBP Physician: Jerel Taylor Total Fluoroscopy time (seconds): 3 Total sedation minutes: 5 Complications: none Procedure in detail & Post-procedure care: FINDINGS Multilevel Facet Arthropathy with Clinically significant axial LBP DESCRIPTION OF PROCEDURE Fluoroscopically guided, contrast-controlled right L5/S1 facet joint injections. Following review of allergy and review of potential side effects and com plications, including, but not necessarily limited to, infection, allergic reaction, local tissue breakdown, stroke, temporary or permanent nerve injury, paralysis, and possible , the patient indicated that the patient understood and agreed to proceed. An informed consent document was signed by the patient, witnessed by a nurse, and placed in the patient's chart. Additionally, other treatment options including medications, modalities, and physical therapy were reviewed with the patient. After review of previous anaesthesic history and IV conscious sedation the patient was deemed safe to proceed with today?s procedure with IV conscious sedation as ASA class II designation. Safety time-out was performed to confirm patient ID, procedure to be performed and site of procedure. IV sedation was accomplished with a combination of 2mg of Versed and 50mcg of Fentanyl was administered by the RN after DO order, titrated to patient comfort during the course of the procedure while the patient remained responsive to all verbal commands. In the prone position, following sterile prep and drape of the lumbar region, the posterior aspect of the right L5/S1 facet joints were identified flu oroscopically. The skin was anesthetized via a 25-gauge 1.5-inch needle with 1% lidocaine solution into the corresponding facet joints. At this point, a 22- gauge 3.5-inch spinal needle was atraumatically introduced and advanced under fluoroscopic guidance into the corresponding facet joints. Following negative aspiration, injections of approximately 0.2-cc of Isovue 200 confirmed interarticular placement without vascular uptake. Radiological data, including multiple fluoroscopic views of the lumbosacral spine, reveal a spinal needle at the right L5/S1 facet joint. Subsequent views show flow of contrast material both superiorly and inferiorly within the joint space without vascular or intrathecal uptake. At this point, a total of 0.5cc including a mixture of 0.25cc Marcaine and 80mg depo medrol was injected without complication into each of the corresponding facet joints. The procedure tolerated the procedure well without signs or symptoms of complications prior to transfer to the recovery area continued monitoring without incident. The patient was then transferred to the recovery area where they were observed for an appropriate period of time after the injection. The patient reported a VAS score of 7 prior to the procedure and a post-procedure VAS of 0. POST OP INSTRUCTIONS The patient was provided a Pain Log to continue to record their response to the target-specific procedure prior to follow-up visit with their referring physician. Additionally, specific post-injection care instructions and a contact number to our office were provided if concerns arise regarding possible complications associated with the procedure are suspected.
== END 2021-04-21 15:21 | disposition home or self-care (01) ==
LOC: RAD 14:17
PROVIDERS: Family Provider Family Medicine; Referring Provider Physical Medicine & Rehabilitation; Visit Provider Physical Medicine & Rehabilitation
DX: M47.817 Spondylosis without myelopathy or radiculopathy, lumbosacral region (principal); M51.37 Other intervertebral disc degeneration, lumbosacral region; M54.5 Low back pain
CPT/HCPCS: 64493; J1040; J2250; J3010

== ENCOUNTER → 2021-04-29 12:53 | Outpatient (CLI) | payer OTHER, SELFPAY ==
[2021-04-29 19:23] LABS: Add Manual Diff / Slide Review NO; Basophils Absolute Auto 0 /uL (0-100); Basophils Percent Auto 0.8 % (0-2); Eosinophils Absolute Auto 100 /uL (0-450); Eosinophils Percent Auto 2.7 % (2-4); Hematocrit 42.5 % (41-53); Hemoglobin 14.3 g/dL (13.5-17.5); Lymphocytes Absolute Auto 1300 /uL (1100-4500); Lymphocytes Percent Auto 23.6 % (25-40); Mean Corpuscular HGB Conc 33.7 % (30-36); Mean Corpuscular Hemoglobin 32.4 PG (26-34); Mean Corpuscular Volume 96.2 fL (80-100); Monocytes Absolute Auto 500 /uL (0-900); Monocytes Percent Auto 9.6 % (3-14); Neutrophils Absolute Auto 3500 /uL (1500-7000); Neutrophils Percent Auto 63.3 % (50-75); Platelet Count 237 X10^3/uL (150-400); Red Blood Cell Count 4.42 X10^6/uL (4.5-5.9); Red Cell Distribution Width 12.7 % (11.6-14.8); White Blood Cell Count 5.5 X10^3/uL (4.5-11.0)
[2021-04-29 19:29] LABS: HEMOLYSIS < 15 (0-50); Iron 151 ug/dL (49-181)
[2021-04-29 19:39] LABS: Percent Iron Saturation 51 % (20-50); Total Iron Binding Capacity 296 ug/dL (261-462); Transferrin 254 mg/dL (206-381)
[2021-04-29 19:50] LABS: Vitamin D 25 Hydroxy (D3) 36.2 ng/mL (30.0-100.0)
[2021-04-29 20:04] LABS: Ferritin 43 ng/mL (18-464)
== END ==
PROVIDERS: Family Provider Family Medicine; PCP Physician Assistant; Visit Provider Physician Assistant
DX: R79.0 Abnormal level of blood mineral (principal); R79.89 Other specified abnormal findings of blood chemistry; R89.9 Unspecified abnormal finding in specimens from other organs, systems and tissues
CPT/HCPCS: 82306; 82728; 83540; 83550; 85025

== ENCOUNTER → 2021-09-22 11:42 | Outpatient (CLI) | payer OTHER, SELFPAY ==
[2021-09-22 19:17] LABS: Add Manual Diff / Slide Review NO; Basophils Absolute Auto 100 /uL (0-100); Basophils Percent Auto 0.7 % (0-2); Eosinophils Absolute Auto 100 /uL (0-450); Eosinophils Percent Auto 1.7 % (2-4); Hematocrit 44.6 % (41-53); Hemoglobin 14.9 g/dL (13.5-17.5); Lymphocytes Absolute Auto 1000 /uL (1100-4500); Lymphocytes Percent Auto 13.8 % (25-40); Mean Corpuscular HGB Conc 33.5 % (30-36); Mean Corpuscular Hemoglobin 31.8 PG (26-34); Mean Corpuscular Volume 94.7 fL (80-100); Monocytes Absolute Auto 900 /uL (0-900); Monocytes Percent Auto 13.4 % (3-14); Neutrophils Absolute Auto 4900 /uL (1500-7000); Neutrophils Percent Auto 70.4 % (50-75); Platelet Count 252 X10^3/uL (150-400); Red Blood Cell Count 4.71 X10^6/uL (4.5-5.9)
[2021-09-22 19:28] LABS: Alanine Aminotransferase 19 IU/L (<50); Albumin 4.5 g/dL (3.5-5.0); Albumin Globulin Ratio 1.4 (1.0-2.8); Alkaline Phosphatase 76 U/L (38-126); Aspartate Aminotransferase 27 IU/L (17-59); BUN Creatinine Ratio 14.9 (6-22); Bilirubin Total 0.8 mg/dL (0.2-1.3); Blood Urea Nitrogen 11 mg/dL (9-20); Calcium 9.8 mg/dL (8.4-10.2); Carbon Dioxide 29 mmol/L (22-32); Chloride 103 mmol/L (98-107); Cholesterol 179 mg/dL (140-199); Estimated Glomerular Filt Rate > 60.0 mL/min (>60); Globulin 3.2 g/dL (1.7-4.1); Glucose 89 mg/dL (80-110); HDL Cholesterol 55 mg/dL (40-60); HEMOLYSIS < 15 (0-50); Iron 28 ug/dL (49-181); LDL Cholesterol Calculated 104 mg/dL (<100); Potassium 4.3 mmol/L (3.4-5.1); Sodium 138 mmol/L (137-145); Total Protein 7.7 g/dL (6.3-8.2); Triglycerides 101 mg/dL (35-150)
[2021-09-22 19:40] LABS: Percent Iron Saturation 9 % (20-50); Total Iron Binding Capacity 300 ug/dL (261-462); Transferrin 241 mg/dL (206-381)
[2021-09-22 19:59] LABS: Prostate Specific Antigen Scrn 5.64 ng/mL (0.1-4.0)
== END ==
PROVIDERS: Family Provider Family Medicine; PCP Physician Assistant; Referring Provider Family Medicine; Visit Provider Family Medicine
DX: Z00.01 Encounter for general adult medical examination with abnormal findings (principal); I10 Essential (primary) hypertension; E78.5 Hyperlipidemia, unspecified; Z12.5 Encounter for screening for malignant neoplasm of prostate; R79.0 Abnormal level of blood mineral
CPT/HCPCS: 80053; 80061; 83540; 83550; 85025; G0103

== ENCOUNTER → 2021-09-30 10:47 | Outpatient (CLI) | payer OTHER, SELFPAY ==
[2021-09-30 19:09] LABS: Add Manual Diff / Slide Review NO; Basophils Absolute Auto 100 /uL (0-100); Eosinophils Absolute Auto 300 /uL (0-450); Eosinophils Percent Auto 4.7 % (2-4); Hematocrit 41.4 % (41-53); Hemoglobin 14.3 g/dL (13.5-17.5); Lymphocytes Absolute Auto 1000 /uL (1100-4500); Lymphocytes Percent Auto 13.4 % (25-40); Mean Corpuscular HGB Conc 34.6 % (30-36); Mean Corpuscular Hemoglobin 32.2 PG (26-34); Mean Corpuscular Volume 92.9 fL (80-100); Monocytes Absolute Auto 1000 /uL (0-900); Monocytes Percent Auto 13.2 % (3-14); Neutrophils Absolute Auto 4900 /uL (1500-7000); Neutrophils Percent Auto 67.7 % (50-75); Platelet Count 279 X10^3/uL (150-400); Red Blood Cell Count 4.46 X10^6/uL (4.5-5.9); Red Cell Distribution Width 13.1 % (11.6-14.8); White Blood Cell Count 7.3 X10^3/uL (4.5-11.0)
[2021-09-30 19:14] LABS: Alanine Aminotransferase 15 IU/L (<50); Albumin Globulin Ratio 1.4 (1.0-2.8); Alkaline Phosphatase 68 U/L (38-126); Aspartate Aminotransferase 23 IU/L (17-59); BUN Creatinine Ratio 13.3 (6-22); Bilirubin Total 0.7 mg/dL (0.2-1.3); Blood Urea Nitrogen 10 mg/dL (9-20); Calcium 9.7 mg/dL (8.4-10.2); Carbon Dioxide 28 mmol/L (22-32); Chloride 105 mmol/L (98-107); Estimated Glomerular Filt Rate > 60.0 mL/min (>60); Globulin 2.8 g/dL (1.7-4.1); Glucose 81 mg/dL (80-110); HEMOLYSIS < 15 (0-50); Lipase 31 U/L (23-300); Potassium 4.4 mmol/L (3.4-5.1); Sodium 137 mmol/L (137-145); Total Protein 6.8 g/dL (6.3-8.2)
[2021-09-30 19:43] LABS: TSH w/ Reflex to FT4 0.87 uIU/mL (0.47-4.68)
[2021-10-01 15:42] LABS: C difficie Toxins A and B, EIA Negative (Negative)
[2021-10-02 15:25] LABS: Fecal Immunochemical Test Positive (Negative)
[2021-10-06 23:43] LABS: Lactoferrin, Fecal Quant 603.38 ug/mL(g) (0.00-7.24)
== END ==
PROVIDERS: Family Provider Family Medicine; PCP Physician Assistant; Visit Provider Physician Assistant
DX: K52.9 Noninfective gastroenteritis and colitis, unspecified (principal)
CPT/HCPCS: 80053; 82274; 83631; 83690; 84443; 85025; 87045; 87177; 87324; 87899

== ENCOUNTER → 2021-10-07 10:34 | Outpatient (CLI) | payer OTHER, SELFPAY ==
[2021-10-07 19:17] LABS: C-Reactive Protein Quant 0.7 mg/dL (<1.0); Magnesium 2.1 mg/dL (1.6-2.3)
[2021-10-07 19:20] LABS: Erythrocyte Sedimentation Rate 33 MM/HR (0-15)
[2021-10-07 19:27] LABS: Vitamin D 25 Hydroxy (D3) 32.8 ng/mL (30.0-100.0)
[2021-10-07 19:59] LABS: Vitamin B12 309 pg/mL (239-931)
== END ==
PROVIDERS: Family Provider Family Medicine; PCP Physician Assistant; Visit Provider Physician Assistant
DX: K52.9 Noninfective gastroenteritis and colitis, unspecified (principal); R19.5 Other fecal abnormalities
CPT/HCPCS: 82306; 82607; 83735; 85651; 86140

== ENCOUNTER → 2021-10-12 17:15 | Outpatient (CLI) | payer OTHER, SELFPAY | PROVIDERS: Family Provider Family Medicine; PCP Physician Assistant; Visit Provider Physician Assistant | DX: L02.91 Cutaneous abscess, unspecified (principal) | CPT/HCPCS: 87070; 87075; 87077; 87205 ==

== ENCOUNTER → 2021-12-10 08:36 | Outpatient (CLI) | payer OTHER, SELFPAY ==
[2021-12-10 20:12] LABS: Prostate Specific Antigen 4.81 ng/mL (0.10-4.00)
[2021-12-12 17:07] LABS: PSA Free % 14.5 % (.); PSA, Total 4.7 ng/mL (0.0-4.0)
== END ==
PROVIDERS: Family Medicine; Family Provider Family Medicine; PCP Physician Assistant; Visit Provider Specialist
DX: R97.20 Elevated prostate specific antigen [PSA] (principal)
CPT/HCPCS: 84153; 84154

== ENCOUNTER 2022-02-19 14:22 | Emergency (ER) | payer OTHER, SELFPAY ==
[2022-02-19] VITALS (35 sets, daily range): BP systolic 96–124; BP diastolic 60–85; PULSE 52–76; RESP 11–22; TEMP 36.7; O2SAT 96–100; BMI 25.8
--- NOTE | 2022-02-19 14:45 | DI.RAD.S_ITS ---
PROCEDURE: XR CHEST 1V INDICATIONS: chest pain TECHNIQUE: One view of the chest was acquired. COMPARISON: [facility], CR, XR CHEST 1V, 01/18/2021, 13:45. FINDINGS: Surgical changes and devices: None. Lungs and pleura: On this semiupright portable chest examination, no large pneumothorax can be seen. There is mild blunting of the left costophrenic angle. No focal infiltrates are seen. Low lung volumes are noted. This causes a crowded appearance to the lung markings and limits evaluation. Mediastinum: Mediastinal contours appear normal. Heart size is normal. Bones and chest wall: No suspicious bony lesions. Age-appropriate bony degenerative changes are seen. Overlying soft tissues appear unremarkable. IMPRESSION: Small left-sided pleural effusion. Low lung volumes. Dictated by: Justin Parks M.D. on 02/19/2022 at 14:20 Approved by: Justin Parks M.D. on 02/19/2022 at 14:21
[2022-02-19 14:53] LABS: Add Manual Diff / Slide Review NO; Basophils Absolute Auto 0 /uL (0-100); Basophils Percent Auto 0.9 % (0-2); Eosinophils Absolute Auto 200 /uL (0-450); Eosinophils Percent Auto 3.8 % (2-4); Hematocrit 39.9 % (41-53); Hemoglobin 13.6 g/dL (13.5-17.5); Lymphocytes Absolute Auto 1200 /uL (1100-4500); Lymphocytes Percent Auto 21.5 % (25-40); Mean Corpuscular Hemoglobin 31.2 PG (26-34); Mean Corpuscular Volume 91.7 fL (80-100); Monocytes Absolute Auto 600 /uL (0-900); Monocytes Percent Auto 11.7 % (3-14); Neutrophils Absolute Auto 3400 /uL (1500-7000); Neutrophils Percent Auto 62.1 % (50-75); Platelet Count 230 X10^3/uL (150-400); Red Blood Cell Count 4.36 X10^6/uL (4.5-5.9); Red Cell Distribution Width 14.2 % (11.6-14.8); White Blood Cell Count 5.4 X10^3/uL (4.5-11.0)
[2022-02-19 15:02] LABS: Alanine Aminotransferase 27 IU/L (<50); Albumin Globulin Ratio 1.3 (1.0-2.8); Alkaline Phosphatase 59 U/L (38-126); Aspartate Aminotransferase 24 IU/L (17-59); BUN Creatinine Ratio 16.5 (6-22); Bilirubin Total 0.7 mg/dL (0.2-1.3); Blood Urea Nitrogen 19 mg/dL (9-20); Calcium 8.8 mg/dL (8.4-10.2); Carbon Dioxide 25 mmol/L (22-32); Chloride 109 mmol/L (98-107); Creatine Kinase 122 U/L (55-170); Estimated Glomerular Filt Rate > 60 mL/min (>60); Glucose 97 mg/dL (80-110); HEMOLYSIS < 15 (0-50); Lipase 39 U/L (23-300); Magnesium 2.1 mg/dL (1.6-2.3); Potassium 4.4 mmol/L (3.4-5.1); Sodium 140 mmol/L (137-145)
[2022-02-19 15:14] LABS: Troponin I < 0.012 ng/mL (0.01-0.034)
[2022-02-19 15:15] LABS: COVID19 -Nasal RAPID Negative (Negative)
[2022-02-19 15:17] LABS: CKMB % Relative Index 1.6 % (1.5-5.0)
--- NOTE | 2022-02-19 15:45 | ED.ARRPALP ---
HPI - Arrhythmia/Palpitations General Chief Complaint: Arrhythmia/Palpitations Stated Complaint: afib cardalogist sent him Time Seen by Provider: 02/19/22 15:01 Source: patient Mode of arrival: Ambulatory History of Present Illness HPI narrative: 61-year-old male. Is on anticoagulation. Has a known history of what sounds like paroxysmal atrial fibrillation. Has been taking all of his medications as directed to include his anticoagulation twice a day for at least the past 4 weeks. He is scheduled for a ablation in approximately 1 month from now. He has had symptoms consistent with his prior history of atrial fibrillation for the past 10 days. 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 He contacted them today and was told to come to the emergency department for cardioversion. He has had a cardioversion in the past. He is having some mild discomfort in his chest and also some shortness of breath and some lightheadedness. No swelling in his legs. Related Data Home Medications Medication Instructions Recorded Confirmed apixaban 5 mg tablet (Eliquis) 5 mg PO BID 02/04/21 12/30/21 epinephrine 0.3 mg/0.3 mL 0.3 mg IM Q5-15M PRN 04/27/21 12/30/21 injection, auto-injector tamsulosin 0.4 mg capsule (Flomax) 0.4 mg PO DAILY 12/30/21 12/30/21 Previous Rx's Medication Instructions Recorded metoprolol succinate 25 mg 12.5 mg PO DAILY #30 tabs 01/18/21 tablet,extended release 24 hr losartan 25 mg tablet 25 mg PO DAILY #90 tabs 10/23/21 Allergies Allergy/AdvReac Type Severity Reaction Status Date / Time No Known Drug Allergies Allergy Verified 02/19/22 14:31 Review of Systems Review of Systems ROS Unobtainable: All systems reviewed & are unremarkable except as noted in HPI and below Patient History Medical History BPH w urinary obs/LUTS Elevated PSA Elevated PSA Facet arthropathy, lumbar Increased prostate specific antigen (PSA) velocity Lumbar radiculopathy Screening for prostate cancer Surgical History H/O hernia repair History of cervical spinal surgery History of removal of calculus of renal pelvis through percutaneous nephrostomy Previous back surgery Social History Smoking Status: Never smoker Smoking Status: Never smoker alcohol intake frequency: holidays/special occasions only Substance Use Type: does not use Exam Initial Vital Signs Initial Vital Signs: Vital Signs Temperature 98.0 F 02/19/22 14:31 Pulse Rate 76 02/19/22 14:31 Respiratory Rate 18 02/19/22 14:31 Blood Pressure 116/69 02/19/22 14:31 Pulse Oximetry 98 02/19/22 14:31 Oxygen Delivery Method 02/19/22 14:31 Const General: cooperative, healthy appearing and comfortable HENMT Head: normal to inspection and normocephalic Resp Effort & Inspection: normal respiratory effort Auscultation: clear to auscultation bilaterally Cardio Rate: regular rate Rhythm: regular rhythm Skin General: no rashes or lesions noted Neuro General: patient alert and patient oriented x3 Extrem General: normal to inspection and No edema Psych Appearance: grossly normal and well kempt Procedures Cardioversion Consent Signed: Yes Indication: Atrial flutter Stability: Stable Number of attempts (shocks): 1 Joules used: 120 Cardiac rhythm post-cardioversion: Sinus rhythm Procedural Sedation Consent signed: Yes Time out performed: Yes Indication: cardioversion ASA Class: II Mallampati Airway Classification: Class II Preparation: quality assurance monitor final applied, pulse oximeter, capnometry used, supplemental O2 applied, suction/airway equipment at bedside and IV secured Fentanyl: IV Fentanyl dose (mcg): 25 IV Propofol dose (mg): 70 Intraservice time/total sedation time (min): 10 ED Sedation Level: Moderate (Concious) Patient Tolerated Procedure: Well and No complications Complications: none Course Orders Ordered: ED Orders 02/19/22 14:40 Complete Blood Count AUTO DIFF Stat Comprehensive Metabolic Panel Stat Lipase Stat Magnesium Stat Troponin & CK Cardiac Panel Stat 02/19/22 14:45 XR chest 1V Stat EKG-12 Lead Stat 02/19/22 14:49 COVID19 -Nasal RAPID/Pre-Proc Stat 02/19/22 15:48 RT Consult Eval and Treat Now 02/19/22 17:24 EKG-12 Lead Stat Discontinued Medications Fentanyl (Fentanyl 100 Mcg/2 Ml Inj) 25 mcg IV NOW ONE Stop: 02/19/22 15:48 Last Admin: 02/19/22 16:31 Dose: 25 mcg Documented By: JESUS Sodium Chloride (Normal Saline 0.9%) 1,000 mls @ 125 mls/hr IV CONT BANDAR Last Infusion: 02/19/22 17:10 Dose: 0 mls/hr Documented By: Admin: 02/19/22 16:19 Dose: 125 mls/hr Documented By: JESUS Propofol (Propofol 200 Mg/20 Ml Vial) 100 mg IV NOW ONE Stop: 02/19/22 15:48 Last Admin: 02/19/22 16:33 Dose: 70 mg Documented By: JESUS Vital Signs Vital signs: Vital Signs - 8 hr 02/19/22 14:31 02/19/22 17:05 02/19/22 14:58 Temperature 98.0 F Pulse Rate 76 62 Respiratory Rate 18 18 Blood Pressure 116/69 108/74 106/68 Pulse Oximetry 98 97 Oxygen Delivery Method Room Air Oxygen Flow Rate 02/19/22 14:58 02/19/22 15:00 02/19/22 15:00 Temperature Pulse Rate 72 74 Respiratory Rate Blood Pressure 105/72 Pulse Oximetry 97 96 Oxygen Delivery Method Oxygen Flow Rate 02/19/22 15:05 02/19/22 15:10 02/19/22 15:15 Temperature Pulse Rate 74 72 71 Respiratory Rate Blood Pressure Pulse Oximetry 97 97 96 Oxygen Delivery Method Oxygen Flow Rate 02/19/22 15:20 02/19/22 15:25 02/19/22 15:30 Temperature Pulse Rate 71 70 Respiratory Rate Blood Pressure 106/66 Pulse Oximetry 97 96 Oxygen Delivery Method Oxygen Flow Rate 02/19/22 15:30 02/19/22 15:35 02/19/22 15:40 Temperature Pulse Rate 71 70 73 Respiratory Rate Blood Pressure Pulse Oximetry 96 97 98 Oxygen Delivery Method Oxygen Flow Rate 02/19/22 15:45 02/19/22 15:50 02/19/22 15:55 Temperature Pulse Rate 74 72 74 Respiratory Rate Blood Pressure Pulse Oximetry 98 97 97 Oxygen Delivery Method Oxygen Flow Rate 02/19/22 16:00 02/19/22 16:00 02/19/22 16:01 Temperature Pulse Rate 71 Respiratory Rate Blood Pressure 104/77 108/75 Pulse Oximetry 97 Oxygen Delivery Method Oxygen Flow Rate 02/19/22 16:01 02/19/22 16:05 02/19/22 16:05 Temperature Pulse Rate 73 69 Respiratory Rate Blood Pressure 109/79 Pulse Oximetry 97 99 Oxygen Delivery Method Oxygen Flow Rate 02/19/22 16:10 02/19/22 16:10 02/19/22 16:15 Temperature Pulse Rate 72 Respiratory Rate 17 Blood Pressure 106/68 109/70 Pulse Oximetry 97 Oxygen Delivery Method Oxygen Flow Rate 02/19/22 16:15 02/19/22 16:20 02/19/22 16:20 Temperature Pulse Rate 70 71 Respiratory Rate 14 22 Blood Pressure 96/66 Pulse Oximetry 98 98 Oxygen Delivery Method Oxygen Flow Rate 02/19/22 16:25 02/19/22 16:25 02/19/22 16:30 Temperature Pulse Rate 72 Respiratory Rate 17 Blood Pressure 122/85 124/83 Pulse Oximetry 100 Oxygen Delivery Method Nasal Cannula Oxygen Flow Rate 2 02/19/22 16:30 02/19/22 16:35 02/19/22 16:40 Temperature Pulse Rate 72 52 L 72 Respiratory Rate 19 17 20 Blood Pressure Pulse Oximetry 100 98 Oxygen Delivery Method Nasal Cannula Nasal Cannula Oxygen Flow Rate 2 2 02/19/22 16:35 02/19/22 16:40 02/19/22 16:40 Temperature Pulse Rate 58 L Respiratory Rate 14 Blood Pressure 101/60 103/66 Pulse Oximetry 97 Oxygen Delivery Method Room Air Oxygen Flow Rate 02/19/22 16:45 02/19/22 16:45 02/19/22 16:50 Temperature Pulse Rate 56 L Respiratory Rate 17 Blood Pressure 102/69 108/75 Pulse Oximetry 96 Oxygen Delivery Method Room Air Oxygen Flow Rate 02/19/22 16:50 02/19/22 16:55 02/19/22 16:56 Temperature Pulse Rate 55 L 58 L 58 L Respiratory Rate 14 19 17 Blood Pressure Pulse Oximetry 97 97 98 Oxygen Delivery Method Room Air Room Air Oxygen Flow Rate 02/19/22 16:56 02/19/22 17:00 02/19/22 17:00 Temperature Pulse Rate 58 L Respiratory Rate 15 Blood Pressure 113/74 109/73 Pulse Oximetry 97 Oxygen Delivery Method Room Air Oxygen Flow Rate 02/19/22 17:05 02/19/22 17:05 02/19/22 17:10 Temperature Pulse Rate 58 L 60 Respiratory Rate 11 L 17 Blood Pressure 108/74 Pulse Oximetry 97 97 Oxygen Delivery Method Oxygen Flow Rate 02/19/22 17:15 02/19/22 17:20 02/19/22 17:25 Temperature Pulse Rate 59 L 60 59 L Respiratory Rate 14 16 15 Blood Pressure Pulse Oximetry 97 97 98 Oxygen Delivery Method Oxygen Flow Rate 02/19/22 17:30 02/19/22 17:30 Temperature Pulse Rate 60 Respiratory Rate Blood Pressure 109/70 Pulse Oximetry 99 Oxygen Delivery Method Oxygen Flow Rate MDM - Arrhythmia/Palpitations Medical Records Attestation: I reviewed the patient's medical records. Lab Data Attestation: I reviewed the patient's lab results. Result diagrams: 02/19/22 14:40 02/19/22 14:40 Labs: Lab Results 02/19/22 02/19/22 02/19/22 Range/Units 14:40 14:40 14:49 WBC 5.4 (4.5-11.0) X10^3/uL RBC 4.36 L (4.5-5.9) X10^6/uL Hgb 13.6 (13.5-17.5) g/dL Hct 39.9 L (41-53) % MCV 91.7 (80-100) fL MCH 31.2 (26-34) PG MCHC 34.0 (30-36) % RDW 14.2 (11.6-14.8) % Plt Count 230 (150-400) X10^3/uL Neut % (Auto) 62.1 (50-75) % Lymph % (Auto) 21.5 L (25-40) % Emmet % (Auto) 11.7 (3-14) % Eos % (Auto) 3.8 (2-4) % Baso % (Auto) 0.9 (0-2) % Neut # (Auto) 3400 (8185-2784) /uL Lymph # (Auto) 1200 (8682-9343) /uL Emmet # (Auto) 600 (0-900) /uL Eos # (Auto) 200 (0-450) /uL Baso # (Auto) 0 (0-100) /uL Sodium 140 (137-145) mmol/L Potassium 4.4 (3.4-5.1) mmol/L Chloride 109 H (98-107) mmol/L Carbon Dioxide 25 (22-32) mmol/L BUN 19 (9-20) mg/dL Creatinine 1.15 (0.66-1.25) mg/dL Estimated GFR > 60 (>60) mL/min BUN/Creatinine Ratio 16.5 (6-22) Glucose 97 (80-110) mg/dL Calcium 8.8 (8.4-10.2) mg/dL Magnesium 2.1 (1.6-2.3) mg/dL Total Bilirubin 0.7 (0.2-1.3) mg/dL AST 24 (17-59) IU/L ALT 27 (<50) IU/L Alkaline Phosphatase 59 (38-126) U/L Total Creatine Kinase 122 (55-170) U/L CK-MB (CK-2) 2.00 (<2.37) ng/mL CK-MB (CK-2) Rel Index 1.6 (1.5-5.0) % Troponin I < 0.012 (0.01-0.034) ng/mL Total Protein 7.0 (6.3-8.2) g/dL Albumin 4.0 (3.5-5.0) g/dL Globulin 3.0 (1.7-4.1) g/dL Albumin/Globulin Ratio 1.3 (1.0-2.8) Lipase 39 (23-300) U/L SARS-CoV-2 (PCR) Negative (Negative) Imaging Data Chest x-ray: Radiologist's Impresson: [address] [address] XRay Report Signed Patient: Dejuan Morris MR#: [id number] : 1960 Acct:[id number] Age/Sex: 61 / M Date of Service: 02/19/22 Loc: ED Accession Number: [id number] ?? Procedure: XR chest 1V Ordering Provider: Tavon Anaya D.O. PROCEDURE:? XR CHEST 1V ? INDICATIONS:? chest pain ? TECHNIQUE:? One view of the chest was acquired.? ? COMPARISON:? [facility], , XR CHEST 1V, 01/18/2021, 13:45. ? FINDINGS:? ? Surgical changes and devices:? None.? ? Lungs and pleura:? On this semiupright portable chest examination, no large pneumothorax can be seen.? There is mild blunting of the left costophrenic angle.? No focal infiltrates are seen.? Low lung volumes are noted. This causes a crowded appearance to the lung markings and limits evaluation.? ? Mediastinum:? Mediastinal contours appear normal.? Heart size is normal.? ? Bones and chest wall:? No suspicious bony lesions.? Age-appropriate bony degenerative changes are seen. ? Overlying soft tissues appear unremarkable.? ? ? IMPRESSION:? Small left-sided pleural effusion. ? Low lung volumes. ? ? Dictated by: Justin Parks M.D. on 02/19/2022 at 14:20 ? ? Approved by: Justin Parks M.D. on 02/19/2022 at 14:21? ECG Data Attestation: I personally reviewed and interpreted this ECG as follows: Interpretation: Arrival EKG Atrial flutter Ventricular rate is 77 Normal axis Normal QRS Normal QTC No ST T wave changes Post cardioversion EKG Sinus rhythm Ventricular rate is 60 Occasional PACs Normal QRS Normal QTC No ST T wave changes MDM Narrative Medical decision making narrative: Patient is in atrial flutter. Is stable. Has had cardioversion in the past and after discussion of risks and benefits he opted for the cardioversion. Was successful. He tolerated procedure well. He will increase his metoprolol from 12.5 mg daily to 12.5 mg 2 times a day. 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 Discharge Plan Departure Patient Disposition: Home Clinical Impression: Atrial fibrillation Instructions: DI for Cardioversion Activity Restrictions/Additional Instructions: Continue to take all of your medications as directed and contact your farmer vegetable for follow-up. Return to the emergency department for any new or worsening symptoms. Prescriptions: No Action losartan 25 mg tablet 25 mg PO DAILY Qty: 90 3RF metoprolol succinate 25 mg tablet extended release 24 hr 12.5 mg PO DAILY Qty: 30 0RF epinephrine 0.3 mg/0.3 mL auto-injector 0.3 mg IM Q5-15M PRN Rx Instructions: INJECT 0.3 ML (0.3 MG) INTRAMUSCULARY ONE TIME NEEDED FOR ANAPHYLAXIS FOR UP TO 6 DOSES. INJECT INTO THE THIGH INSTRUCTED PER PATIENT PACKAGE INSERT. DATE ISSUED 01/09/2021 Eliquis 5 mg tablet 5 mg PO BID tamsulosin [Flomax] 0.4 mg capsule 0.4 mg PO DAILY Referrals: Leta Stephens PA-C [Primary Care Provider] - Visit Report Forms: Patient Portal/API
[2022-02-19] MEDS: SODIUM CHLORIDE 0.9% 1,000 ML 125 ML IV (16:19)
[2022-02-19] MEDS: fentaNYL 100 MCG/2 ML INJ 25 MCG IV (16:31)
[2022-02-19] MEDS: propofoL 200 MG/20 ML VIAL 100 MG IV (16:33)
--- NOTE | 2022-02-19 16:44 | RT ---
Called to Bedside for PRS for Cardioversion. Bag mask unit with 100% fio2, suction and etco2 on and functional. Pt placed on 2 lpm nc, annabella well and no distress noted. Pt alert post prs, released by Rn and pt on room air with sao2 of 98%
== END 2022-02-19 17:59 | disposition home or self-care (01) ==
PROVIDERS: Emergency Provider Emergency Medicine; Family Provider Family Medicine; PCP Physician Assistant
DX: I48.0 Paroxysmal atrial fibrillation (principal); Z79.01 Long term (current) use of anticoagulants; R07.9 Chest pain, unspecified; Z20.822 Contact with and (suspected) exposure to COVID-19
CPT/HCPCS: 36415; 71045; 80053; 82550; 82553; 83690; 83735; 84484; 85025; 87635; 92960; 93005; 99152; 99285; C9803; J2704; J3010

== ENCOUNTER → 2022-03-29 07:05 | Outpatient (CLI) | payer OTHER, SELFPAY ==
[2022-03-29 22:17] LABS: COVID19 - ORCAS (NP or Nasal) Negative (Negative)
== END ==
PROVIDERS: Family Provider Family Medicine; PCP Physician Assistant; Visit Provider Family Medicine
DX: Z20.822 Contact with and (suspected) exposure to COVID-19 (principal); Z01.812 Encounter for preprocedural laboratory examination
CPT/HCPCS: U0003

== ENCOUNTER → 2022-04-27 13:59 | Outpatient (CLI) | payer OTHER, SELFPAY ==
[2022-04-27 19:58] LABS: Prostate Specific Antigen 5.34 ng/mL (0.10-4.00)
== END ==
PROVIDERS: Family Provider Family Medicine; PCP Physician Assistant; Visit Provider Specialist
DX: R97.20 Elevated prostate specific antigen [PSA] (principal)
CPT/HCPCS: 84153

== ENCOUNTER → 2022-05-07 11:06 | Outpatient (CLI) | payer OTHER, SELFPAY ==
[2022-05-07 19:43] LABS: COVID19 - ORCAS (NP or Nasal) Negative (Negative)
== END ==
PROVIDERS: Family Provider Family Medicine; PCP Family Medicine; Visit Provider Physician Assistant Medical
DX: Z01.812 Encounter for preprocedural laboratory examination (principal); Z20.822 Contact with and (suspected) exposure to COVID-19
CPT/HCPCS: C9803; U0003

== ENCOUNTER → 2022-05-31 08:59 | Outpatient (CLI) | payer OTHER, SELFPAY ==
[2022-05-31 22:23] LABS: COVID19 - ORCAS (NP or Nasal) Negative (Negative)
== END ==
PROVIDERS: Family Provider Family Medicine; PCP Family Medicine; Visit Provider Physician Assistant
DX: Z01.812 Encounter for preprocedural laboratory examination (principal); Z20.822 Contact with and (suspected) exposure to COVID-19
CPT/HCPCS: U0003

== ENCOUNTER → 2022-06-21 07:01 | Outpatient (CLI) | payer OTHER, SELFPAY ==
[2022-06-21 20:08] LABS: COVID19 - ORCAS (NP or Nasal) Negative (Negative)
== END ==
PROVIDERS: Specialist; Family Provider Family Medicine; PCP Family Medicine; Visit Provider Family Medicine
DX: Z01.812 Encounter for preprocedural laboratory examination (principal); Z20.822 Contact with and (suspected) exposure to COVID-19; R97.20 Elevated prostate specific antigen [PSA]
CPT/HCPCS: 84153; U0003

== ENCOUNTER → 2022-11-29 10:57 | Outpatient (CLI) | payer BC, OTHER, SELFPAY ==
[2022-11-29 20:34] LABS: BUN Creatinine Ratio 23.4 (6-22); Blood Urea Nitrogen 15 mg/dL (9-20); Calcium 9.4 mg/dL (8.4-10.2); Carbon Dioxide 28 mmol/L (22-32); Chloride 103 mmol/L (98-107); Estimated Glomerular Filt Rate > 60 mL/min (>60); Glucose 84 mg/dL (80-110); HEMOLYSIS < 15 (0-50); Magnesium 2.2 mg/dL (1.6-2.3); Potassium 4.3 mmol/L (3.4-5.1); Sodium 136 mmol/L (137-145)
== END ==
PROVIDERS: Family Provider Family Medicine; PCP Family Medicine; Visit Provider Internal Medicine Cardiovascular Disease
DX: Z51.81 Encounter for therapeutic drug level monitoring (principal); Z79.899 Other long term (current) drug therapy
CPT/HCPCS: 80048; 83735

== ENCOUNTER → 2022-11-30 11:16 | Outpatient (CLI) | payer BC, OTHER, SELFPAY ==
--- NOTE | 2022-11-30 | DI.MRI.S_ITS ---
PROCEDURE: MR KNEE RT WO CON INDICATIONS: Pain in right knee TECHNIQUE: Noncontrast sagittal PD fast spin echo and T2 fast spin echo with fat saturation, sagittal 3-D FLASH with fat saturation; coronal T1 spin echo and PD fast spin echo with fat saturation, and axial PD fast spin echo with fat saturation through the knee. COMPARISON: [facility], CR, XR KNEE ARTHRITIC SERIES BI, 10/26/2022, 12:54. FINDINGS: Image quality: Excellent. Anterior Cruciate Ligament: Intact. Posterior Cruciate Ligament: Small amount of fluid intensity is seen within the midportion of the posterior cruciate ligament that may represent low-grade partial tearing. Medial Collateral Ligament: Mild edema surrounding the proximal to mid medial collateral ligament may be reactive to the adjacent meniscal tear or secondary to a low-grade sprain. Lateral Collateral Ligament: Intact. Medial Meniscus: There is horizontal tearing of the posterior horn and body of the medial meniscus extending to the inner third of the tibial articular surface and the free edge margin. There is a small 12 x 3 x 3 mm parameniscal cyst adjacent to the posterior horn. Lateral Meniscus: Intact. Medial and Lateral Tendons: The semimembranosus tendon insertions and meniscocapsular junction appear intact. Visualized portions of the pes anserinus tendons appear normal. No abnormal bursal fluid. The long and short heads of the biceps femoris tendon appear intact. The popliteus tendon appears intact. No signs of posterolateral corner injury. Iliotibial band appears normal. Anterior Structures: The quadriceps and patellar tendons appear intact. No patellar subluxation. No femoral trochlear dysplasia or ventral trochlear prominence. No edema in the infrapatellar fat pad. Bones: No acute trabecular bone injury or fracture. Medial Femorotibial Cartilage: Partial-thickness cartilage irregularity is seen in the weight-bearing portion of the medial femorotibial compartments. Lateral Femorotibial Cartilage: No focal cartilage defect. Patellofemoral Cartilage: Full-thickness cartilage loss is seen at the medial femoral trochlea. There is mild partial thickness cartilage irregularity at the median ridge and medial facet of the patella. Soft Tissues: A moderate joint effusion is present. There is a small medial popliteal cyst. Mild surrounding edema may indicate prior cyst rupture. A small amount of fluid is seen tracking along the popliteus tendon sheath. The musculature surrounding the knee is normal in bulk. IMPRESSION: 1. Low-grade partial tearing of the midportion of the posterior cruciate ligament. 2. Grade 1 sprain of the proximal to mid medial collateral ligament. 3. Horizontal tearing of the posterior horn and body of the medial meniscus extending to the inner third of the tibial articular surface and the free edge margin, with a small parameniscal cyst posteriorly. 4. Full-thickness cartilage loss at the medial femoral trochlea. Areas of grade 2 chondromalacia are seen in the anterior and medial compartments. 5. Moderate joint effusion. Small medial popliteal cyst with signs of prior cyst rupture. Approved by: Reginald Nunez M.D. on 11/30/2022 at 12:56
== END ==
PROVIDERS: Family Provider Family Medicine; PCP Family Medicine; Referring Provider Student in an Organized Health Care Education/Training Program; Visit Provider Student in an Organized Health Care Education/Training Program
DX: S83.521A Sprain of posterior cruciate ligament of right knee, initial encounter (principal); S83.411A Sprain of medial collateral ligament of right knee, initial encounter; S83.241A Other tear of medial meniscus, current injury, right knee, initial encounter; M94.261 Chondromalacia, right knee; M25.461 Effusion, right knee; M71.21 Synovial cyst of popliteal space [Baker], right knee; M25.561 Pain in right knee; M25.562 Pain in left knee
CPT/HCPCS: 73721

== ENCOUNTER → 2022-12-22 11:05 | Outpatient (CLI) | payer BC, OTHER, SELFPAY ==
[2022-12-22 19:27] LABS: Add Manual Diff / Slide Review NO; Basophils Absolute Auto 100 /uL (0-100); Basophils Percent Auto 1.2 % (0-2); Eosinophils Absolute Auto 200 /uL (0-450); Eosinophils Percent Auto 2.9 % (2-4); Hematocrit 42.4 % (41-53); Hemoglobin 14.4 g/dL (13.5-17.5); Lymphocytes Absolute Auto 1100 /uL (1100-4500); Lymphocytes Percent Auto 20.2 % (25-40); Mean Corpuscular Hemoglobin 32.4 PG (26-34); Mean Corpuscular Volume 95.2 fL (80-100); Monocytes Absolute Auto 600 /uL (0-900); Monocytes Percent Auto 11.6 % (3-14); Neutrophils Absolute Auto 3400 /uL (1500-7000); Neutrophils Percent Auto 64.1 % (50-75); Platelet Count 254 X10^3/uL (150-400); Red Blood Cell Count 4.45 X10^6/uL (4.5-5.9); Red Cell Distribution Width 13.1 % (11.6-14.8); White Blood Cell Count 5.3 X10^3/uL (4.5-11.0)
[2022-12-22 19:52] LABS: Alanine Aminotransferase 22 IU/L (<50); Albumin 4.1 g/dL (3.5-5.0); Albumin Globulin Ratio 1.5 (1.0-2.8); Alkaline Phosphatase 76 U/L (38-126); Aspartate Aminotransferase 26 IU/L (17-59); BUN Creatinine Ratio 21.7 (6-22); Bilirubin Total 1.1 mg/dL (0.2-1.3); Blood Urea Nitrogen 13 mg/dL (9-20); Carbon Dioxide 29 mmol/L (22-32); Chloride 102 mmol/L (98-107); Cholesterol 175 mg/dL (140-199); Estimated Glomerular Filt Rate > 60 mL/min (>60); Globulin 2.8 g/dL (1.7-4.1); Glucose 83 mg/dL (80-110); HDL Cholesterol 58 mg/dL (40-60); HEMOLYSIS < 15 (0-50); LDL Cholesterol Calculated 103 mg/dL (<100); Potassium 4.3 mmol/L (3.4-5.1); Sodium 137 mmol/L (137-145); Total Protein 6.9 g/dL (6.3-8.2); Triglycerides 70 mg/dL (35-150)
[2022-12-22 20:18] LABS: Prostate Specific Antigen Scrn 8.55 ng/mL (0.1-4.0)
[2022-12-22 20:41] LABS: Hep C Virus Ab w/Reflex Quant NEGATIVE s/c (NEGATIVE)
== END ==
PROVIDERS: Family Provider Family Medicine; PCP Family Medicine; Visit Provider Family Medicine
DX: D64.9 Anemia, unspecified (principal); E78.5 Hyperlipidemia, unspecified; I10 Essential (primary) hypertension; I48.0 Paroxysmal atrial fibrillation; N13.8 Other obstructive and reflux uropathy; N40.1 Benign prostatic hyperplasia with lower urinary tract symptoms; Z12.5 Encounter for screening for malignant neoplasm of prostate; R97.20 Elevated prostate specific antigen [PSA]
CPT/HCPCS: 80053; 80061; 85025; 86803; G0103

== ENCOUNTER → 2023-01-27 12:17 | Outpatient (CLI) | payer BC, OTHER, SELFPAY ==
--- NOTE | 2023-01-27 12:18 | DI.MRI.S_ITS ---
PROCEDURE: MR PELIS WO/W CON INDICATIONS: BPH with urinary obstruction/ LUTS TECHNIQUE: Coronal HASTE, axial T1 FSE with fat saturation, 3-plane nonbreath-hold T2 FSE. After the administration of contrast, dynamic axial, delayed axial and coronal VIBE or 2-D FLASH with fat saturation through the pelvis. Optional diffusion weighted imaging and ADC may be performed. COMPARISON: None. FINDINGS: Image quality: Diffusion weighted and dynamic contrast enhanced images are diagnostic. Prostate: Gland size is 4.7 x 3.8 x 4.9 cm; ellipsoid gland volume is 46 mL. There is homogeneous enhancement the mid, bilateral peripheral zone, with associated slightly decreased T2 signal in a wedge-shaped formation. No associated restricted diffusion. No PI-RADS 3 through 5 lesions. Genitourinary system: Trabeculated bladder wall. Distal ureters are non distended. Bowel and peritoneum: No pathologic free pelvic fluid. Inferior colon and small bowel loops are normal in caliber. Nodes and vessels: No pelvic or inguinal adenopathy by size criteria. Iliac vessels are normal in caliber. Soft tissues: No inguinal hernias. Bones: Marrow demonstrates normal overall signal, without lesions to suggest metastases. IMPRESSION: Suspect mild prostatitis. No PI-RADS 3 through 5 lesions. Dictated by: Dejuan Bean M.D. on 01/27/2023 at 14:56 Approved by: Dejuan Bean M.D. on 01/27/2023 at 15:02
== END ==
PROVIDERS: Family Provider Family Medicine; PCP Family Medicine; Referring Provider Specialist; Visit Provider Specialist
DX: N40.1 Benign prostatic hyperplasia with lower urinary tract symptoms (principal); N13.8 Other obstructive and reflux uropathy
CPT/HCPCS: 72197; A9579

== ENCOUNTER → 2023-03-07 10:05 | Outpatient (CLI) | payer BC, OTHER, SELFPAY ==
--- NOTE | 2023-03-07 10:08 | DI.RAD.S_ITS ---
PROCEDURE: XR LUMBAR SPINE MIN 4V INDICATIONS: BACK PAIN TECHNIQUE: 5 views of the lumbar spine were acquired, including bilateral oblique views. COMPARISON: [facility], , XR LUMBAR SPINE MIN 4V, 11/24/2020, 12:00. FINDINGS: Bones: 5 nonrib-bearing vertebrae are present. There is normal bony alignment. No vertebral body compression fractures. No suspicious bony lesions. There is mild degenerative change including intervertebral disc space narrowing, endplate sclerosis and facet sclerosis. Soft tissues: Overlying bowel gas pattern is normal. No suspicious soft tissue calcifications. Oblique images: No pars defects. IMPRESSION: Mild degenerative change. Dictated by: Grace Villela M.D. on 03/07/2023 at 14:26 Approved by: Grace Villela M.D. on 03/07/2023 at 14:27
== END ==
PROVIDERS: Family Provider Family Medicine; PCP Family Medicine; Referring Provider Physical Medicine & Rehabilitation; Visit Provider Physical Medicine & Rehabilitation
DX: M47.26 Other spondylosis with radiculopathy, lumbar region (principal); M54.9 Dorsalgia, unspecified
CPT/HCPCS: 72110

== ENCOUNTER 2023-04-05 09:37 | Outpatient (CLI) | payer BC, OTHER, SELFPAY ==
[2023-04-05] VITALS (8 sets, daily range): BP systolic 102–124; BP diastolic 59–71; PULSE 52–64; RESP 11–20; TEMP 36.8; O2SAT 97–100
--- NOTE | 2023-04-05 09:39 | DI.RAD.S_ITS ---
PROCEDURE: PAIN L/S TRANSFORAMINAL INJECT INDICATIONS: SPONDYLOSIS COMPARISON: [facility], CR, XR LUMBAR SPINE MIN 4V, 03/07/2023, 10:06. FINDINGS: Fluoroscopic spot filming was performed to verify placement of a spinal needle at the L4-L5 level, as labeled on the films. Appropriate location of the needle tip was confirmed by injection of iodinated contrast. IMPRESSION: Intraprocedural examination within normal limits. Dictated by: Justin Parks M.D. on 04/05/2023 at 12:03 Approved by: Justin Parks M.D. on 04/05/2023 at 12:03
[2023-04-05] MEDS: MIDAZOLAM 2 MG/2 ML VIAL IV (11:01)
[2023-04-05] MEDS: BUPIVACAINE 0.25% (PF) VIAL 2 ML INJ (11:06)
[2023-04-05] MEDS: IOPAMIDOL 15 ML VIAL 3 ML INJ (11:06)
[2023-04-05] MEDS: BETAMETHASONE 30 MG/5 ML MDV 6 MG INJ (11:07)
[2023-04-05] MEDS: DEXAMETHASONE 10 MG/ML VIAL INJ (11:07)
--- NOTE | 2023-04-05 11:14 | P.PCN_ITS ---
Date/Time/Diagnoses Date of procedure: 04/05/23 Time of procedure: 11:14 Pre-procedure diagnosis: 1. FORAMINAL STENOSIS WITH LE SYMPTOMS Post-procedure diagnosis: same Procedure Notes Procedure: 1. FLUOROSCOPICALLY GUIDED CONTRAST CONTROLLED TRANSFORAMINAL EPIDURAL STEROID INJECTION - RIGHT L4/5 TFESI Indications: Dejuan is referred by Dr. Bell for treatment of Foraminal Stenosis with Right LE Symptoms Physician: Jerel Taylor Total Fluoroscopy time (seconds): 13 Total sedation minutes: 10 Complications: none Procedure in detail & Post-procedure care: FINDINGS Foraminal Nerve Root Compression secondary to disc disease and facet hypertrophy DESCRIPTION OF PROCEDURE Following review of allergy and review of potential side effects and complications, including, but not necessarily limited to, infection, allergic reaction, local tissue breakdown, stroke, temporary or permanent nerve injury, paralysis, and possible , the patient indicated that the patient understood and agreed to proceed. An informed consent document was signed by the patient, witnessed by a nurse, and placed in the patient's chart. Additionally, other treatment options including medications, modalities, and physical therapy were reviewed with the patient. After review of previous anaesthesic history and IV conscious sedation the patient was deemed safe to proceed with today?s procedure with IV conscious sedation as ASA class II designation. Safety time-out was performed to confirm patient ID, procedure to be performed and site of procedure. IV sedation was accomplished with a combination of 2mg of Versed was administered by the RN after DO order, titrated to patient comfort during the course of the procedure while the patient remained responsive to all verbal commands In the prone position following sterile prep and drape of the lumbar region, the right L4/5 posterior neuroforamen was identified fluoroscopically. The skin was anesthetized via a 25-gauge 1.5-inch needle with 1% lidocaine solution. At this point, a 25-gauge 3.5-inch spinal needle was atraumatically introduced and advanced under fluoroscopic guidance through the posterior right L4/5 neuroforamen to approximately the anterior aspect of the canal. Depth was confirmed on lateral view. Following negative aspiration, injection of approximately 1.5cc of Isovue 200 under live fluoroscopy in the AP view con firmed excellent flow along the nerve root, into the epidural space without vascular or intrathecal uptake observed Radiological data, including multiple fluoroscopic views of the lumbosacral spine, reveal a spinal needle at the right L4/5 posterior neuroforamen. Subsequent views show flow of contrast material flowing superiorly and inferiorly along the nerve root confirming epidural flow. Subsequently, a test dose of 1.5 cc of 1% lidocaine solution was administered and patient was observed for two minutes for signs or symptoms of complications, including abdominal pain, shortness of breath, bilateral upper or lower extremity weakness, nausea and vomiting, prior to steroid injection. At this point, a total of 2cc or 10mg of dexamethasone and 6mg of betamethasone was injected without incident. The procedure tolerated the procedure well without signs or symptoms of complications prior to transfer to the recovery area continued monitoring without incident. The patient was then transferred to the recovery area where they were observed for an appropriate time after the injection. The patient reported a VAS score of 7 prior to the procedure and a post- procedure VAS of 0. POST OP INSTRUCTIONS The patient was provided a Pain Log to continue to record their response to the target-specific procedure prior to follow-up visit with their referring p ezekiel. Additionally, specific post-injection care instructions and a contact number to our office were provided if concerns arise regarding possible complications associated with the procedure are suspected.
--- NOTE | 2023-04-05 11:54 | PC.NURSE ---
Upon discharge patient wheeled out by Tahmina to discover the patient actually did not have a ride home. Him and his drove their boat from the [facility], docked in [facility] and walked over. Their plan was to walk to lunch and then back to the boat where his Sanjuana would drive home. During check in discharge instructions were reviewed with patient, he verbalized understanding and told this RN that his was his ride and would be here to pick him up. Dr. Taylor made aware, and per his instructions the patient was advised that it is not recommended that he walk anywhere and that he was supposed to have a ride. Patient verbalized understanding and declined offer to call a cab. He was released to his Sanjuana with instructions that it is not advised that he walk. Patient A/O, in NAD. Denies dizziness or weakness. Ambulating without difficulty.
== END 2023-04-05 11:45 | disposition home or self-care (01) ==
LOC: RAD 09:39
PROVIDERS: Family Provider Family Medicine; PCP Family Medicine; Referring Provider Physical Medicine & Rehabilitation; Visit Provider Physical Medicine & Rehabilitation
DX: M48.061 Spinal stenosis, lumbar region without neurogenic claudication (principal); M51.16 Intervertebral disc disorders with radiculopathy, lumbar region; M47.26 Other spondylosis with radiculopathy, lumbar region
CPT/HCPCS: 64483; 99152; J0702; J1100; J2250; J3490

== ENCOUNTER → 2023-05-11 11:15 | Outpatient (CLI) | payer BC, OTHER, SELFPAY ==
[2023-05-14 10:25] LABS: PSA Free % 10.9 % (.); PSA, Total 8.2 ng/mL (0.0-4.0)
== END ==
PROVIDERS: Family Provider Family Medicine; PCP Family Medicine; Visit Provider Specialist
DX: R97.20 Elevated prostate specific antigen [PSA] (principal)
CPT/HCPCS: 84153; 84154

== ENCOUNTER 2023-05-17 13:30 | Outpatient (CLI) | payer BC, OTHER, SELFPAY ==
[2023-05-17] VITALS (8 sets, daily range): BP systolic 107–118; BP diastolic 58–76; PULSE 64–68; RESP 18–20; TEMP 36.1; O2SAT 95–100
--- NOTE | 2023-05-17 13:31 | DI.RAD.S_ITS ---
PROCEDURE: PAIN L/S TRANSFORAMINAL INJECT INDICATIONS: SPONDYLOSIS COMPARISON: [facility], , PAIN L/S TRANSFORAMINAL INJECT, 04/05/2023, 11:03. FINDINGS: Fluoroscopic spot filming was performed to verify placement of a spinal needle at the L5-S1 level, as labeled on the films. Appropriate location of the needle tip was confirmed by injection of iodinated contrast. IMPRESSION: No significant intraprocedural abnormality. Dictated by: Justin Parks M.D. on 05/17/2023 at 18:43 Approved by: Justin Parks M.D. on 05/17/2023 at 18:43
[2023-05-17] MEDS: MIDAZOLAM 2 MG/2 ML VIAL IV (14:18)
[2023-05-17] MEDS: BETAMETHASONE 30 MG/5 ML MDV 6 MG INJ (14:21)
[2023-05-17] MEDS: iopamidoL 15 ML VIAL 3 ML INJ (14:21)
[2023-05-17] MEDS: DEXAMETHASONE 10 MG/ML VIAL INJ (14:21)
[2023-05-17] MEDS: BUPIVACAINE 0.25% (PF) VIAL 2 ML INJ (14:22)
--- NOTE | 2023-05-17 14:30 | P.PCN_ITS ---
Date/Time/Diagnoses Date of procedure: 05/17/23 Time of procedure: 14:30 Pre-procedure diagnosis: FORAMINAL STENOSIS WITH LE SYMPTOMS Post-procedure diagnosis: same Procedure Notes Procedure: 1. FLUOROSCOPICALLY GUIDED CONTRAST CONTROLLED TRANSFORAMINAL EPIDURAL STEROID INJECTION - RIGHT L5/S1 TFESI Indications: Dejuan is referred by Dr. Bell for treatment of Foraminal Stenosis with Right LE Symptoms Physician: Jerel Taylor Total Fluoroscopy time (seconds): 8 Total sedation minutes: 10 Complications: none Procedure in detail & Post-procedure care: FINDINGS Foraminal Nerve Root Compression secondary to disc disease and facet hypertrophy DESCRIPTION OF PROCEDURE Following review of allergy and review of potential side effects and complications, including, but not necessarily limited to, infection, allergic reaction, local tissue breakdown, stroke, temporary or permanent nerve injury, paralysis, and possible , the patient indicated that the patient understood and agreed to proceed. An informed consent document was signed by the patient, witnessed by a nurse, and placed in the patient's chart. Additionally, other treatment options including medications, modalities, and physical therapy were reviewed with the patient. After review of previous anaesthesic history and IV conscious sedation the patient was deemed safe to proceed with today?s procedure with IV conscious sedation as ASA class II designation. Safety time-out was performed to confirm patient ID, procedure to be performed and site of procedure. IV sedation was accomplished with a combination of 2mg of Versed was administered by the RN after DO order, titrated to patient comfort during the course of the procedure while the patient remained responsive to all verbal commands In the prone position following sterile prep and drape of the lumbar region, the right L5/S1 posterior neuroforamen was identified fluoroscopically. The skin was anesthetized via a 25-gauge 1.5-inch needle with 1% lidocaine solution. At this point, a 25-gauge 3.5-inch spinal needle was atraumatically introduced and advanced under fluoroscopic guidance through the posterior right L5/S1 neuroforamen to approximately the anterior aspect of the canal. Depth was confirmed on lateral view. Following negative aspiration, injection of approximately 1.5cc of Isovue 200 under live fluoroscopy in the AP view confirmed excellent flow along the nerve root, into the epidural space without vascular or intrathecal uptake observed Radiological data, including multiple fluoroscopic views of the lumbosacral spine, reveal a spinal needle at the right L5/S1 posterior neuroforamen. Subsequent views show flow of contrast material flowing superiorly and inferiorly along the nerve root confirming epidural flow. Subsequently, a test dose of 1.5 cc of 1% lidocaine solution was administered and patient was observed for two minutes for signs or symptoms of complications, including abdominal pain, shortness of breath, bilateral upper or lower extremit y weakness, nausea and vomiting, prior to steroid injection. At this point, a total of 2cc or 10mg of dexamethasone and 6mg of betamethasone was injected without incident. The procedure tolerated the procedure well without signs or symptoms of complications prior to transfer to the recovery area continued monitoring without incident. The patient was then transferred to the recovery area where they were observed for an appropriate time after the injection. The patient reported a VAS score of 7 prior to the procedure and a post- procedure VAS of 0. POST OP INSTRUCTIONS The patient was provided a Pain Log to continue to record their response to the target-specific procedure prior to follow-up visit with their referring physician. Additionally, specific post-injection care instructions and a contact number to our office were provided if concerns arise regarding possible complications associated with the procedure are suspected.
--- NOTE | 2023-05-17 14:57 | PC.NURSE ---
Patient being wheeled out post injection for discharge. His was at the Emergency Room entrance. It became clear that the patient in fact did not have a ride and they walked from their boat in [facility] per the patient. The patient was instructed of protocol for discharge and verbalized understanding but declined to follow directions. Patient chose to walk with his against this RN and Dr. Taylor's instruction. Dr. Taylor made aware.
== END 2023-05-17 14:51 | disposition home or self-care (01) ==
LOC: RAD 13:31
PROVIDERS: Family Provider Family Medicine; PCP Family Medicine; Referring Provider Physical Medicine & Rehabilitation; Visit Provider Physical Medicine & Rehabilitation
DX: M48.07 Spinal stenosis, lumbosacral region (principal); M51.17 Intervertebral disc disorders with radiculopathy, lumbosacral region; M47.27 Other spondylosis with radiculopathy, lumbosacral region
CPT/HCPCS: 64483; 99152; J0702; J1100; J2250

== ENCOUNTER → 2023-07-04 08:29 | Outpatient (CLI) | payer BC, OTHER, SELFPAY ==
--- NOTE | 2023-07-04 08:33 | DI.MRI.S_ITS ---
PROCEDURE: MR LUMBAR SPINE WO CON INDICATIONS: Chronic progressive low back pain TECHNIQUE: Noncontrast sagittal T1 spin echo and T2 fast echo, sagittal STIR, and T2 fast spin echo through the lumbar spine. In cases with scoliosis, additional coronal T2 fast spin echo may be performed. COMPARISON: , MR, MR LUMBAR SPINE WO CON, 02/04/2021, 9:22. FINDINGS: Image quality: Excellent. Alignment and Curvature: There is normal bony alignment. Bone Marrow: Marrow is of normal overall signal. No acute vertebral body compression fractures. Spinal Cord: Conus medullaris terminates at the L1 level. Visualized cord demonstrates normal signal and size. Paraspinous Soft Tissues: No paravertebral masses. T12-L1: Normal appearance. L1-L2: Moderate facet hypertrophy. Mild bilateral neural foraminal narrowing. L2-L3: Moderate facet hypertrophy and arthrosis. Diffuse disc bulge. Moderate bilateral neural foraminal narrowing and moderate spinal canal narrowing. L3-L4: Broad-based disc bulge. Facet hypertrophy and ligamentum flavum hypertrophy. Mild spinal canal narrowing and moderate bilateral neural foraminal narrowing. L4-L5: Broad-based disc bulge. Facet hypertrophy. Moderate left and moderate to severe right neural foraminal narrowing. Moderate spinal canal narrowing. L5-S1: Mild facet hypertrophy. Broad-based disc bulge, contacting the S1 nerve roots. Moderate bilateral neural foraminal narrowing. IMPRESSION: Multilevel degenerative disc disease and facet arthrosis, as above. This has progressed from prior. Of note, there is moderate bilateral neural foraminal narrowing at L2-3, L3-4, L4-5 and L5-S1. Additionally, there is moderate spinal canal narrowing at L2-3, L4-5. Dictated by: Dejuan Bean M.D. on 07/04/2023 at 14:25 Approved by: Dejuan Bean M.D. on 07/04/2023 at 14:33
== END ==
PROVIDERS: Family Provider Family Medicine; PCP Family Medicine; Referring Provider Physical Medicine & Rehabilitation; Visit Provider Physical Medicine & Rehabilitation
DX: M47.816 Spondylosis without myelopathy or radiculopathy, lumbar region (principal); M47.817 Spondylosis without myelopathy or radiculopathy, lumbosacral region; M51.36 Other intervertebral disc degeneration, lumbar region; M51.37 Other intervertebral disc degeneration, lumbosacral region; M48.061 Spinal stenosis, lumbar region without neurogenic claudication; M48.07 Spinal stenosis, lumbosacral region; Z98.890 Other specified postprocedural states
CPT/HCPCS: 72148

== ENCOUNTER → 2023-07-05 14:14 | Outpatient (CLI) | payer BC, OTHER, SELFPAY ==
[2023-07-05 19:50] LABS: BUN Creatinine Ratio 22.1 (6-22); Blood Urea Nitrogen 15 mg/dL (9-20); Calcium 9.9 mg/dL (8.4-10.2); Carbon Dioxide 25 mmol/L (22-32); Chloride 104 mmol/L (98-107); Estimated Glomerular Filt Rate > 60 mL/min (>60); Glucose 84 mg/dL (80-110); HEMOLYSIS < 15 (0-50); Magnesium 2.2 mg/dL (1.6-2.3); Potassium 4.4 mmol/L (3.4-5.1); Sodium 137 mmol/L (137-145)
== END ==
PROVIDERS: Family Provider Family Medicine; PCP Family Medicine; Visit Provider Nurse Practitioner
DX: I48.0 Paroxysmal atrial fibrillation (principal)
CPT/HCPCS: 80048; 83735

== ENCOUNTER → 2023-12-12 09:23 | Outpatient (CLI) | payer MEDICARE, OTHER, SELFPAY ==
[2023-12-15 09:28] LABS: PSA Free % 10.6 % (.); PSA, Total 8.2 ng/mL (0.0-4.0)
== END ==
PROVIDERS: Family Provider Family Medicine; PCP Family Medicine; Visit Provider Specialist
DX: N40.1 Benign prostatic hyperplasia with lower urinary tract symptoms (principal); N13.8 Other obstructive and reflux uropathy; R97.20 Elevated prostate specific antigen [PSA]
CPT/HCPCS: 84153; 84154

== ENCOUNTER → 2024-01-02 14:09 | Outpatient (CLI) | payer MEDICARE, OTHER, SELFPAY ==
[2024-01-02 19:57] LABS: BUN Creatinine Ratio 37.9 (6-22); Blood Urea Nitrogen 22 mg/dL (9-20); Calcium 9.9 mg/dL (8.4-10.2); Carbon Dioxide 24 mmol/L (22-32); Chloride 105 mmol/L (98-107); Estimated Glomerular Filt Rate > 60 mL/min (>60); Glucose 82 mg/dL (80-110); HEMOLYSIS < 15 (0-50); Magnesium 2.2 mg/dL (1.6-2.3); Potassium 4.6 mmol/L (3.4-5.1); Sodium 137 mmol/L (137-145)
== END ==
PROVIDERS: Family Provider Family Medicine; PCP Family Medicine; Visit Provider Nurse Practitioner
DX: Z51.81 Encounter for therapeutic drug level monitoring (principal); Z79.899 Other long term (current) drug therapy; I48.91 Unspecified atrial fibrillation
CPT/HCPCS: 80048; 83735

== ENCOUNTER → 2024-02-22 08:57 | Outpatient (CLI) | payer MEDICARE, OTHER, SELFPAY ==
--- NOTE | 2024-02-22 09:00 | DI.CT.S_ITS ---
PROCEDURE: CT HEAD/BRAIN WO CON INDICATIONS: constant headaches for 10 days, nocturnal headache TECHNIQUE: Noncontrast 4.5 mm thick angled axial sections acquired from the foramen magnum to the vertex, with coronal and sagittal reformats. For radiation dose reduction, the following was used: automated exposure control, adjustment of mA and/or kV according to patient size. COMPARISON: None. FINDINGS: Image quality: Diagnostic. CSF spaces: Basal cisterns are patent. No extra-axial fluid collections. Ventricles are normal in size and shape. Brain: No midline shift. No intracranial masses or hemorrhage. Rodriguez-white matter interface is normal. Skull and face: Calvarium and visualized facial bones are intact, without suspicious lesions. Sinuses: Visualized sinuses and mastoids are clear. IMPRESSION: No acute intracranial pathology. Dictated by: Cuca Fallon M.D. on 02/22/2024 at 9:20 Approved by: Cuca Fallon M.D. on 02/22/2024 at 9:32
== END ==
LOC: CT 08:59
PROVIDERS: Family Provider Family Medicine; PCP Family Medicine; Referring Provider Family Medicine; Visit Provider Family Medicine
DX: R51.9 Headache, unspecified (principal)
CPT/HCPCS: 70450

== ENCOUNTER → 2024-03-06 11:09 | Outpatient (CLI) | payer MEDICARE, OTHER, SELFPAY ==
[2024-03-06 19:51] LABS: Add Manual Diff / Slide Review NO; Basophils Absolute Auto 100 /uL (0-100); Basophils Percent Auto 1.2 % (0-2); Eosinophils Absolute Auto 300 /uL (0-450); Eosinophils Percent Auto 4.7 % (2-4); Hemoglobin 14.5 g/dL (13.5-17.5); Lymphocytes Absolute Auto 1400 /uL (1100-4500); Lymphocytes Percent Auto 23.6 % (25-40); Mean Corpuscular HGB Conc 34.4 % (30-36); Mean Corpuscular Hemoglobin 32.9 PG (26-34); Mean Corpuscular Volume 95.7 fL (80-100); Monocytes Absolute Auto 700 /uL (0-900); Monocytes Percent Auto 11.6 % (3-14); Neutrophils Absolute Auto 3400 /uL (1500-7000); Neutrophils Percent Auto 58.9 % (50-75); Platelet Count 280 X10^3/uL (150-400); Red Blood Cell Count 4.39 X10^6/uL (4.5-5.9); Red Cell Distribution Width 13.3 % (11.6-14.8); White Blood Cell Count 5.8 X10^3/uL (4.5-11.0)
[2024-03-06 20:07] LABS: BUN Creatinine Ratio 26.3 (6-22); Blood Urea Nitrogen 20 mg/dL (9-20); C-Reactive Protein Quant < 0.5 mg/dL (<1.0); Calcium 9.2 mg/dL (8.4-10.2); Carbon Dioxide 25 mmol/L (22-32); Chloride 107 mmol/L (98-107); Estimated Glomerular Filt Rate > 60 mL/min (>60); Glucose 99 mg/dL (80-110); HEMOLYSIS < 15 (0-50); Potassium 4.5 mmol/L (3.4-5.1); Sodium 138 mmol/L (137-145)
[2024-03-06 20:09] LABS: Erythrocyte Sedimentation Rate 10 MM/HR (0-15)
== END ==
PROVIDERS: Family Provider Family Medicine; PCP Family Medicine; Visit Provider Family Medicine
DX: R51.9 Headache, unspecified (principal); I10 Essential (primary) hypertension
CPT/HCPCS: 80048; 85025; 85651; 86140

== ENCOUNTER → 2024-03-12 09:17 | Outpatient (CLI) | payer MEDICARE, OTHER, SELFPAY ==
[2024-03-12 19:57] LABS: Cholesterol 193 mg/dL (140-199); HDL Cholesterol 66 mg/dL (40-60); LDL Cholesterol Calculated 115 mg/dL (<100); Magnesium 2.3 mg/dL (1.6-2.3); Triglycerides 59 mg/dL (35-150)
[2024-03-12 20:00] LABS: Blood Urea Nitrogen 19 mg/dL (9-20); Calcium 9.4 mg/dL (8.4-10.2); Carbon Dioxide 27 mmol/L (22-32); Chloride 109 mmol/L (98-107); Estimated Glomerular Filt Rate > 60 mL/min (>60); Glucose 91 mg/dL (80-110); HEMOLYSIS < 15 (0-50); Potassium 4.8 mmol/L (3.4-5.1); Sodium 140 mmol/L (137-145)
[2024-03-12 20:36] LABS: Ferritin 36 ng/mL (18-464)
== END ==
PROVIDERS: Physician Assistant; Family Provider Family Medicine; PCP Family Medicine; Visit Provider Nurse Practitioner
DX: Z79.899 Other long term (current) drug therapy (principal); D64.9 Anemia, unspecified; E78.5 Hyperlipidemia, unspecified; Z51.81 Encounter for therapeutic drug level monitoring; I48.91 Unspecified atrial fibrillation; I48.0 Paroxysmal atrial fibrillation; Z12.11 Encounter for screening for malignant neoplasm of colon
CPT/HCPCS: 80048; 80061; 82274; 82728; 83735

== ENCOUNTER → 2024-05-28 11:27 | Outpatient (CLI) | payer MEDICARE, OTHER, SELFPAY ==
[2024-05-28 19:34] LABS: BUN Creatinine Ratio 20.3 (6-22); Blood Urea Nitrogen 15 mg/dL (9-20); Calcium 9.8 mg/dL (8.4-10.2); Carbon Dioxide 29 mmol/L (22-32); Chloride 104 mmol/L (98-107); Estimated Glomerular Filt Rate > 60 mL/min (>60); Glucose 83 mg/dL (80-110); Potassium 4.5 mmol/L (3.4-5.1); Sodium 136 mmol/L (137-145)
[2024-05-28 19:35] LABS: HEMOLYSIS 51 (0-50)
[2024-05-30 09:11] LABS: PSA Free % 10.1 % (.); PSA, Total 10.8 ng/mL (0.0-4.0)
== END ==
PROVIDERS: Urology; Family Provider Family Medicine; PCP Family Medicine; Visit Provider Nurse Practitioner
DX: I48.19 Other persistent atrial fibrillation (principal); Z51.81 Encounter for therapeutic drug level monitoring; Z79.899 Other long term (current) drug therapy; N40.1 Benign prostatic hyperplasia with lower urinary tract symptoms; N13.8 Other obstructive and reflux uropathy
CPT/HCPCS: 80048; 84153; 84154

== ENCOUNTER → 2024-12-11 13:03 | Outpatient (CLI) | payer MEDICARE, OTHER, SELFPAY ==
[2024-12-13 07:09] LABS: PSA Free % 10.8 % (.); PSA, Total 11.2 ng/mL (0.0-4.0)
== END ==
LOC: LAB 13:03
PROVIDERS: PCP Family Medicine; Visit Provider Urology
DX: N40.1 Benign prostatic hyperplasia with lower urinary tract symptoms (principal); N13.8 Other obstructive and reflux uropathy
CPT/HCPCS: 84153; 84154

== ENCOUNTER → 2024-12-27 11:38 | Outpatient (CLI) | payer MEDICARE, OTHER, SELFPAY | PROVIDERS: Family Provider Family Medicine; PCP Family Medicine; Visit Provider Urology | DX: N40.1 Benign prostatic hyperplasia with lower urinary tract symptoms (principal); N13.8 Other obstructive and reflux uropathy | CPT/HCPCS: 87086 ==

== ENCOUNTER → 2025-01-07 10:04 | Outpatient (CLI) | payer MEDICARE, OTHER, SELFPAY ==
[2025-01-07 19:00] LABS: BUN Creatinine Ratio 17.2 (6-22); Blood Urea Nitrogen 15 mg/dL (9-20); Calcium 9.4 mg/dL (8.4-10.2); Carbon Dioxide 27 mmol/L (22-32); Chloride 104 mmol/L (98-107); Cholesterol 200 mg/dL (140-199); Estimated Glomerular Filt Rate > 60 mL/min (>60); Glucose 87 mg/dL (70-99); HDL Cholesterol 63 mg/dL (40-60); HEMOLYSIS < 15 (0-50); LDL Cholesterol Calculated 121 mg/dL (<100); Potassium 4.3 mmol/L (3.4-5.1); Sodium 137 mmol/L (137-145); Triglycerides 80 mg/dL (35-150)
[2025-01-07 19:25] LABS: Hematocrit 41.6 % (41-53); Mean Corpuscular HGB Conc 33.6 % (30-36); Mean Corpuscular Hemoglobin 31.7 PG (26-34); Mean Corpuscular Volume 94.5 fL (80-100); Platelet Count 210 X10^3/uL (150-400); Red Cell Distribution Width 13.4 % (11.6-14.8); White Blood Cell Count 4.8 X10^3/uL (4.5-11.0)
[2025-01-07 20:25] LABS: Neutrophils Absolute Manual 2880 /uL (3000-5900); Total Cells Counted 100
[2025-01-07 20:26] LABS: RBC Morphology Normal Morphology
== END ==
PROVIDERS: Family Provider Family Medicine; PCP Family Medicine; Referring Provider Family Medicine; Visit Provider Family Medicine
DX: I10 Essential (primary) hypertension (principal); E78.5 Hyperlipidemia, unspecified; D64.9 Anemia, unspecified
CPT/HCPCS: 80048; 80061; 85025

== ENCOUNTER → 2025-02-06 14:09 | Outpatient (CLI) | payer MEDICARE, OTHER, SELFPAY ==
[2025-02-06 18:51] LABS: BUN Creatinine Ratio 16.9 (6-22); Blood Urea Nitrogen 15 mg/dL (9-20); Calcium 9.7 mg/dL (8.4-10.2); Carbon Dioxide 26 mmol/L (22-32); Chloride 105 mmol/L (98-107); Estimated Glomerular Filt Rate > 60 mL/min (>60); Glucose 101 mg/dL (70-99); HEMOLYSIS < 15 (0-50); Potassium 4.3 mmol/L (3.4-5.1); Sodium 138 mmol/L (137-145)
== END ==
PROVIDERS: Family Provider Family Medicine; PCP Family Medicine; Visit Provider Nurse Practitioner
DX: Z51.81 Encounter for therapeutic drug level monitoring (principal); I48.19 Other persistent atrial fibrillation; Z79.899 Other long term (current) drug therapy
CPT/HCPCS: 80048; 83735

== ENCOUNTER → 2025-02-14 10:48 | Outpatient (CLI) | payer MEDICARE, OTHER, SELFPAY | PROVIDERS: Family Provider Family Medicine; PCP Family Medicine; Referring Provider Orthopaedic Surgery Orthopaedic Surgery of the Spine; Visit Provider Orthopaedic Surgery Orthopaedic Surgery of the Spine | DX: Z98.1 Arthrodesis status (principal) | CPT/HCPCS: 95886; 95910 ==

== ENCOUNTER → 2025-05-03 13:20 | Outpatient (CLI) | payer MEDICARE, OTHER, SELFPAY ==
--- NOTE | 2025-05-03 13:23 | DI.CT.S_ITS ---
PROCEDURE: CT SOFT TISSUE NECK W CON INDICATIONS: Hypoglossal nerve palsy TECHNIQUE: After the administration of intravenous contrast, 3.0 mm axial sections acquired from the sella to the aortic arch. Additional oblique axial 3.0 mm sections acquired through the pharynx. 3 mm thick coronal and sagittal reformats were generated. For radiation dose reduction, the following was used: automated exposure control. COMPARISON: [facility], MR, MR HEAD/BRAIN WO/W CON, 04/15/2025, 16:54. [facility], CT, CT HEAD/BRAIN WO CON, 02/22/2024, 9:14. (Additional prior imaging is not available for review from the archive at the time of this dictation.) FINDINGS: Image quality: There is artifact associated with the metallic hardware. There is streak artifact seen through the level of the shoulders. Lymph nodes: No enlarged lymph nodes seen throughout the neck. Vessels: Visualized vasculature appears patent. Neck spaces: Mild asymmetric soft tissue fullness can be seen at the right tongue base, as on series 2, image 30. The oropharynx, nasopharynx, and pharynx demonstrate no mucosal lesions. The vocal cords, false vocal cords, pyriform sinuses, epiglottis, and the vallecula each appear normal. Extramucosal spaces appear unremarkable. Glands: The parotid and submandibular glands appear normal. Thyroid gland demonstrates no significant abnormality. Miscellaneous: Visualized brain and orbits appear normal. Lung apices appear clear. Superficial soft tissues appear normal. Bones: No suspicious bony lesions. Visualized sinuses and mastoids appear unremarkable. Cervical spine postoperative and degenerative changes can be seen. IMPRESSION: Mild asymmetric soft tissue fullness can be seen involving the right tongue base, which may simply be artifactual. -- Please correlate with known patient history and physical examination findings. Additional findings: Postoperative and degenerative change of the cervical spine Dictated by: Justin Parks M.D. on 05/03/2025 at 16:40 Approved by: Justin Parks M.D. on 05/03/2025 at 16:44
[2025-05-03 14:21] LABS: Estimated Glomerular Filt Rate > 60 mL/min (>60)
== END ==
PROVIDERS: Family Provider Family Medicine; PCP Family Medicine; Referring Provider Student in an Organized Health Care Education/Training Program; Visit Provider Student in an Organized Health Care Education/Training Program
DX: G52.3 Disorders of hypoglossal nerve (principal); M47.812 Spondylosis without myelopathy or radiculopathy, cervical region
CPT/HCPCS: 36415; 70491; 82565; Q9967

== ENCOUNTER → 2025-05-07 14:05 | Outpatient (CLI) | payer MEDICARE, OTHER, SELFPAY ==
[2025-05-07 19:57] LABS: Blood Urea Nitrogen 14 mg/dL (9-20); Calcium 9.3 mg/dL (8.4-10.2); Carbon Dioxide 24 mmol/L (22-32); Chloride 105 mmol/L (98-107); Estimated Glomerular Filt Rate > 60 mL/min (>60); Glucose 93 mg/dL (70-99); HEMOLYSIS 20 (0-50); Magnesium 2.1 mg/dL (1.6-2.3); Potassium 4.3 mmol/L (3.4-5.1); Sodium 138 mmol/L (137-145)
[2025-05-10 07:40] LABS: PSA, Total 11.7 ng/mL (0.0-4.0)
== END ==
PROVIDERS: Urology; Family Provider Family Medicine; PCP Family Medicine; Visit Provider Nurse Practitioner
DX: Z51.81 Encounter for therapeutic drug level monitoring (principal); Z79.899 Other long term (current) drug therapy; N40.1 Benign prostatic hyperplasia with lower urinary tract symptoms; N13.8 Other obstructive and reflux uropathy; R97.20 Elevated prostate specific antigen [PSA]
CPT/HCPCS: 80048; 83735; 84153; 84154